=== PATIENT | female | born 1945 | race Caucasian/White ===

== ENCOUNTER 2019-10-22 12:19 | Observation (INO) | payer MEDICARE, SELFPAY ==
--- NOTE | ~2019-10-22 | CT_ITS ---
EXAMINATION: CT brain wo con EXAM DATE: 10/23/2019 09:56 INDICATION: Left leg weakness, speech impairment. TECHNIQUE: Spiral CT of the head was performed without contrast. Axial, coronal and sagittal images were reviewed. The dose-length product (DLP) for this examination was 605.33 mGy-cm. The exposure w as tailored according to patient size, and iterative reconstruction (ASIR) was used as additional dos e reduction technique. Comparison is made to prior examination from 06/09/2016. FINDINGS: There is no acute intraparenchymal hemorrhage. No evidence of intraparenchymal brain mass lesion. No evidence of acute infarction. Please note that initial head CT has limited sensitivity f or small or acute infarctions. There is mild periventricular and subcortical hypodensity, nonspecific but probably related to small vessel ischemic disease. There is mild prominence of the sulci and v entricles related to cerebral atrophy. There is intracranial carotid arteriosclerosis. There are n o extra-axial collections. There is no mass effect or midline shift. Patient has had bilateral ocul ar lens surgery. Soft tissue is unremarkable. The visualized sinuses and mastoid air cells are well aerated. IMPRESSION: 1. No acute intracranial findings. 2. Chronic age related findings. Reviewed, dictated and finalized at location A. [employer]
[2019-10-22 12:27] VITALS: BP 88/67; PULSE 87; PULSE 89; RESP 18; O2SAT 97
[2019-10-22 12:51] LABS: Glucose Point of Care 489 (65-105)
--- NOTE | 2019-10-22 13:22 | ED.GENADULT ---
HPI - General Adult General Chief complaint: Unspecified Stated complaint: DIABETIC EPISODE Time Seen by Provider: 10/22/19 13:21 Source: patient Mode of arrival: EMS Limitations: no limitations History of Present Illness HPI narrative: Pt is a 74 y/o female who presents to the ED, via EMS, from her orthopedics office, Dr. Tom with c/o glucose imbalance. Pt went to see her orthopedic for an evaluation of her arthritic knees. She states that she started feeling nauseous, sweating, and fatigued when going to XR and she felt like her BS was low so she took her glucose tablets and her BS went high. Her BS went back down and she feels better in the ED bed. Pt denies dysuria, frequency, rash, wounds, dizziness, CP, SOB, sweats, chills, or nausea in the ED bed. She states that she took her insulin this morning but did not eat because she ran out of time. MD complaint: Glucose imbalance Severity: similar to prior episodes Associated symptoms: denies other symptoms Treatments prior to arrival: other (glucose tablets) Related Data Allergies Allergy/AdvReac Type Severity Reaction Status Date / Time diclofenac Allergy Mild Unknown Verified 10/12/19 13:33 morphine Allergy Mild REDDNESS/IT Verified 10/12/19 13:33 DEUCE prednisone Allergy Mild hands Verified 10/12/19 13:33 didn't work Sulfa (Sulfonamide Allergy Mild 01/15/07 Verified 10/12/19 13:33 Antibiotics) ALLERGY CONFIMED ON ADMISSION TO PREOP sulfanilamide Allergy Mild lips Verified 10/12/19 13:33 swelling tetracycline Allergy Mild 01/15/07 Verified 10/12/19 13:33 ALLERGRY CONFIRMED ON ADMISSION TO PREOP tramadol Allergy Mild ITCHING Verified 10/12/19 13:33 Review of Systems Review of Systems: All systems reviewed & are unremarkable except as noted in HPI and below Constitutional: Constitutional: Denies chills and Denies other (sweats) Cardiovascular: Cardiovascular: Denies chest pain Respiratory: Respiratory: Denies dyspnea Gastrointestinal: Gastrointestinal: Denies nausea Genitourinary: Genitourinary: Denies nocturia and Denies dysuria Integumentary/Breasts: Skin/Breast: Denies rash and Denies wounds Neurologic: Denies dizziness PMFSH Past Medical History Medical History Depressive disorder H/O gastric ulcer 2013 Hyperlipidemia Hypertension Hypothyroid Long-term insulin use Peripheral neuropathy Spinal stenosis Surgery - 2009 Thrombocytopenia Type 2 diabetes mellitus with diabetic neuropathy Surgical History Surgical History H/O: hysterectomy 1998 History of knee replacement 2002 Social History Social History Smoking status: Never smoker Alcohol intake: current Gender identity (if verbalized by the patient): Female Exam Narrative: Exam Narrative: GENERAL: Elderly and fatigued appearing, well-nourished, and in no acute distress. HEAD: Normocephalic, atraumatic. ENT: Mucous membranes moist. CHEST: Clear to auscultation. No respiratory distress. HEART: Regular rate and rhythm. Normal peripheral pulses. ABDOMEN: Soft, nontender, nondistended. EXTREMITIES: Normal range of motion. 1+ edema. NEURO: Alert and oriented x3. PSYCH: Normal mood and affect. Course Consultations Consultation #1: Discussed case with DAVID Mejía for the hospitalist. Accepted admission. Date: 10/22/19 Time: 16:57 Vital Signs Vital signs: Vital Signs Pulse Rate 89 10/22/19 12:27 Respiratory Rate 18 10/22/19 12:27 Blood Pressure 88/67 L 10/22/19 12:27 Pulse Oximetry 97 10/22/19 12:27 Pulse Rate 84 10/22/19 14:31 Respiratory Rate 18 10/22/19 12:27 Blood Pressure 118/73 10/22/19 14:31 Pulse Oximetry 97 10/22/19 14:31 Medical Decision Making Vital Signs Vital Signs: Vital Signs Pulse Rate 89 10/22
[2019-10-22 14:00] VITALS: BP 118/73; PULSE 84; RESP 8; O2SAT 97
[2019-10-22 14:01] LABS: Basophils Percent Auto 0.4 % (0.2-1.2); Eosinophils Absolute Auto 0.1 K/mm3 (0-0.3); Hematocrit 33.7 % (37.0-47.0); Hemoglobin 10.5 g/dL (12.0-15.0); Immature Granulocyte Absolute 0.03 K/mm3 (0.00-0.031); Immature Granulocyte Percent A 0.6 % (0-0.5); Lymphocytes Absolute Auto 1.11 K/mm3 (0.9-3.2); Lymphocytes Percent Auto 20.7 % (18.3-44.2); Mean Corpuscular HGB Conc 31.2 g/dl (32-36); Mean Corpuscular Hemoglobin 26.9 pg (26-34); Mean Corpuscular Volume 86.4 fl (80-100); Mean Platelet Volume 10.1 fl (7.4-10.4); Monocytes Absolute Auto 0.6 K/mm3 (0.1-0.6); Neutrophils Absolute Auto 3.5 K/mm3 (1.3-6.7); Neutrophils Percent Auto 65.3 % (45.5-73.1); Platelet Count Result 96 k/mm3 (150-375); Red Cell Distribution Width 15.2 % (11.5-14.5); White Blood Count 5.4 K/mm3 (4.5-10.0)
[2019-10-22 14:12] LABS: Alanine Aminotransferase 22 U/L (4-35); Albumin Level 3.6 g/dL (3.5-5.1); Alkaline Phosphatase 97 U/L (38-126); Aspartate Amino Transferase 32 U/L (14-36); Bilirubin,Total 0.5 mg/dL (0.2-1.3); Blood Urea Nitrogen 22 mg/dL (7-17); Calcium 9.8 mg/dL (8.4-10.2); Carbon Dioxide 25 mmol/L (22-30); Chloride 97 mmol/L (98-107); Estimated CRCL calculation 25 ml/min; Estimated Glomerular Filt Rate 27; Glucose 306 mg/dL (65-105); Lipase 69 U/L (23-300); Potassium 4.4 mmol/L (3.4-5.0); Sodium 134 mmol/L (137-145)
[2019-10-22 14:31] VITALS: BP 118/73; PULSE 84; O2SAT 97
[2019-10-22] MEDS: SODIUM CHLORIDE 0.9% IV 1,000 ML 999 ML IV CONT (14:34)
--- NOTE | 2019-10-22 14:48 | PC.NURSE ---
Pt is unable to give urine sample at this time.
[2019-10-22 16:14] LABS: Add Urine Microscopic? YES; Appearance Urine Cloudy (Clear); Bacteria Urine 3+ /hpf; Bilirubin Urine Negative (Negative); Budding Yeast Urine Present /hpf; Color Urine Yellow (Yellow); Glucose Urine UA 3+ mg/dL (Negative); Hyaline Casts Urine 50+ /lpf; Ketones Urine Trace mg/dL (Negative); Leukocyte Esterase Ur 3+ LEU/UL (Negative); Nitrate Urine Negative (Negative); Protein Urine 2+ mg/dL (Negative); RBC Urine >75 /hpf (0-2); Specific Grav Ur 1.024 (1.001-1.035); Squamous Epithelial Cell Urine Few /hpf (Few); WBC Urine >75 /hpf
[2019-10-22 16:22] LABS: Blood Urine Negative (Negative)
[2019-10-22 19:10] VITALS: BP 110/75; PULSE 75; RESP 15; O2SAT 98
[2019-10-22 20:28] VITALS: BP 157/70; PULSE 81; RESP 16; TEMP 36.4; O2SAT 100
[2019-10-22 20:39] VITALS: BMI 31.8
[2019-10-22 21:36] LABS: Glucose Point of Care 326 (65-105)
--- NOTE | 2019-10-22 23:10 | ADMGEN ---
This patient, Adore Segovia, was admitted to Medical Room 345-01. Patient/family oriented to hospital policies and general routines including ID bracelet, bed and alarms, visiting hours, pain management, procedures, bathroom and other care routines, personal items, smoking policy, room service/diet, and visiting hours. Valuables list has been completed. Information on how to activate the Rapid Response Team has been discussed. Patient/Family are encouraged to report perceived risks to care and to ask questions if they do not understand what they are told or what they should do.
[2019-10-23] MEDS: SODIUM CHLORIDE 0.9% IV 1,000 ML 125 ML IV CONT ×2 (00:36→09:14)
[2019-10-23] MEDS: LEVOTHYROXINE SODIUM 50 MCG TABLET PO (05:58)
[2019-10-23 06:00] VITALS: BP 136/67; PULSE 81; RESP 18; TEMP 36.5; O2SAT 93
[2019-10-23 06:39] LABS: Blood Urea Nitrogen 26 mg/dL (7-17); Calcium 8.6 mg/dL (8.4-10.2); Carbon Dioxide 24 mmol/L (22-30); Chloride 99 mmol/L (98-107); Estimated CRCL calculation 33 ml/min; Estimated Glomerular Filt Rate 37; Glucose 368 mg/dL (65-105); Potassium 4.6 mmol/L (3.4-5.0); Sodium 131 mmol/L (137-145)
[2019-10-23] MEDS: lisinopriL 20 MG TABLET 40 MG PO (08:46)
[2019-10-23] MEDS: FLUOXETINE HCL 20 MG CAP PO (08:46)
[2019-10-23] MEDS: metFORMIN HCL 500 MG TABLET 1000 MG PO ×2 (08:46→17:43)
[2019-10-23] MEDS: PANTOPRAZOLE 40 MG TABLET PO (08:46)
[2019-10-23] MEDS: INSULIN ASPART (*BKC) 100 UNITS/ML SUB-Q ×4 (08:46→22:48)
[2019-10-23 08:54] LABS: Glucose Point of Care 371 (65-105)
--- NOTE | 2019-10-23 09:12 | PM.IMHP ---
H&P: HPI History of Present Illness Chief complaint: UTI/Acute renal failure Narrative: Adore Segovia is a 74 year old female who presented emergency room for nausea and dry heaving and possible low blood sugar while she was at her orthopedics office. Patient states that she took her insulin the morning of her doctor's appointment ate a cookie but did not get to eat very much else. She went to the orthopedics office and she was trying to read on her android but the words were not right and it was like she was wearing someone else's glasses . She started to feel sweaty and overall very uncomfortable. She says she fell asleep for a while and when they woke her up she started having significant nausea and dry heaving although she was not able to throw up anything. She said she was unable to find the right words and said these were all the symptoms of low blood sugar so she took some for glucose tablets she had in her purse. She says she thinks this made her better but was so nervous that she did not feel better immediately. She says she checks her blood sugars 3 to 4 times a day and is around 130 but has been much worse lately. She has an appointment on December 19 to see her doctor. She says she takes insulin and it depends on what her glucose is at the time and how many carbs that she is going to eat but she typically takes about 8 units per meal. She denies dysuria but has been having frequency the last few weeks. She has left leg weakness which is why she was at orthopedics office which has been going on for a few weeks. She has some pain associated with it but mostly weakness. She denies lightheadedness, dizziness, diarrhea, chest pain, fevers, chills, shortness of breath, hematuria, or leg swelling. She has no known history of kidney problems. She has no numbness or tingling anywhere to her body. She has no history of stroke. She said a few days ago she fell backwards onto her pomology teacher and bruised her left hand but did not hit her head. She says that her dog on which has caused her to be more down in the dumps but she thinks she was eating and drinking okay. She says that her platelets have been low in the past and she has seen automotive generator repairer before. [facility] Past Medical History Medical History Depressive disorder H/O gastric ulcer 2012 Hyperlipidemia Hypertension Hypothyroid Long-term insulin use Peripheral neuropathy Spinal stenosis Surgery - 2008 Thrombocytopenia Type 2 diabetes mellitus with diabetic neuropathy Surgical History Surgical History H/O: hysterectomy 1998 History of knee replacement 2002 Family History Family History (Updated 10/22/19 @ 23:13 by Chichi Arceo RN) Mother Family history of respiratory disorder, Onset Age: 85 Patient's mother is Father Family history of heart disease in male family member before age 55 Family history of cardiovascular disease Patient's father is Family history of chronic obstructive pulmonary disease Sibling Patient's brother is Other Depression Diabetes mellitus Family history of alcoholism Family history of arthritis Family history of glaucoma Family history of mental disorder Family history of obesity Hypertension Social History Social History (Updated 10/23/19 @ 09:22 by Shayy Henry PA-C) Social History: Patient does not drink and never smoked. She does not do drugs or marijuana. She is retired and used to work at [employer]. She stays home with her who has dementia now. Smoking status: Never smoker Alcohol intake: never Substance use: never Gender identity (if verbalized by the patient): Female Spiritual care concerns: No Agree to blood products: No Meds Home Medications and Allergies Home Medications
--- NOTE | 2019-10-23 11:51 | PCPTNOTE ---
Addendum entered by Lexus Hobbs, PT 10/23/19 11:52: Clarification: care care plan is required as patient is at baseline function. She will not be followed by PT unless there is change in status. Original Note: No Care Plan initiated due to patient being discharged today.
[2019-10-23 13:19] LABS: Glucose Point of Care 306 (65-105)
[2019-10-23 14:00] VITALS: BP 134/73; PULSE 79; RESP 20; TEMP 36.8; O2SAT 100
[2019-10-23 18:38] LABS: Glucose Point of Care 351 (65-105)
[2019-10-23 21:43] VITALS: BP 161/67; PULSE 84; RESP 18; TEMP 36.8; O2SAT 96
[2019-10-23] MEDS: LATANOPROST 0.005% OP SOLN 2.5 ML BTL 1 DROP EACH EYE (21:47)
[2019-10-23] MEDS: ACETAMINOPHEN 325 MG TABLET 650 MG PO (21:51)
[2019-10-23 22:12] LABS: Glucose Point of Care 308 (65-105)
[2019-10-24 02:01] LABS: Glucose Point of Care 228 (65-105)
[2019-10-24 06:00] VITALS: BP 146/58; PULSE 79; RESP 18; TEMP 36.4; O2SAT 94
[2019-10-24 06:08] LABS: Hemoglobin 8.7 g/dL (12.0-15.0); Mean Corpuscular HGB Conc 31.1 g/dl (32-36); Mean Corpuscular Hemoglobin 26.4 pg (26-34); Mean Corpuscular Volume 84.8 fl (80-100); Mean Platelet Volume 10.5 fl (7.4-10.4); Platelet Count Result 67 k/mm3 (150-375); Red Cell Distribution Width 14.9 % (11.5-14.5); White Blood Count 3.1 K/mm3 (4.5-10.0)
[2019-10-24] MEDS: LEVOTHYROXINE SODIUM 50 MCG TABLET PO (06:12)
[2019-10-24 06:34] LABS: Blood Urea Nitrogen 22 mg/dL (7-17); Calcium 9.1 mg/dL (8.4-10.2); Carbon Dioxide 23 mmol/L (22-30); Chloride 101 mmol/L (98-107); Estimated CRCL calculation 41 ml/min; Estimated Glomerular Filt Rate 48; Glucose 264 mg/dL (65-105); Potassium 4.5 mmol/L (3.4-5.0); Sodium 134 mmol/L (137-145)
[2019-10-24] MEDS: ONDANSETRON INJ 4 MG/2 ML VIAL IV PUSH (07:44)
[2019-10-24 08:17] LABS: Glucose Point of Care 350 (65-105)
[2019-10-24] MEDS: INSULIN ASPART (*BKC) 100 UNITS/ML SUB-Q ×2 (08:17→13:43)
[2019-10-24] MEDS: metFORMIN HCL 500 MG TABLET 1000 MG PO (08:24)
[2019-10-24] MEDS: PANTOPRAZOLE 40 MG TABLET PO (08:24)
[2019-10-24] MEDS: FLUOXETINE HCL 20 MG CAP PO (08:24)
[2019-10-24 08:25] VITALS: PULSE 79; RESP 18; O2SAT 94
[2019-10-24] MEDS: lisinopriL 20 MG TABLET 40 MG PO (08:25)
[2019-10-24] MEDS: FLUCONAZOLE 100 MG TABLET PO (09:30)
--- NOTE | 2019-10-24 12:31 | PM.DS ---
DS: Diagnosis Admitting Diagnosis Admitting Diagnosis: Urinary tract infection, site not specified Discharge Diagnosis (1) Acute UTI: Code(s): N39.0 - Urinary tract infection, site not specified Status: Acute Assessment and Plan: ----- pt is having symptoms of a UTI and had > 100,000 of yeast grow. Since she has uncontrolled diabetes, thought to be a true infection. Will treat with 14d of diflucan. pt vitals and labs are stable. (2) MANOHAR (acute kidney injury): Code(s): N17.9 - Acute kidney failure, unspecified Status: Acute Assessment and Plan: ----- improved. Likely due to decreased intake and UTI. Improved with IV fluids. (3) Thrombocytopenia: Code(s): D69.6 - Thrombocytopenia, unspecified Status: Chronic Assessment and Plan: ----- Chronic. Patient has seen budder in the past for this. (4) Type 2 diabetes mellitus with diabetic neuropathy: Code(s): E11.40 - Type 2 diabetes mellitus with diabetic neuropathy, unspecified Status: Chronic Assessment and Plan: ----- The patient has signs and symptoms hypoglycemia but this was actually not checked. She says she has been running very high lately. She got insulin without eating so it is likely that she was hypoglycemic but her glucose has been significantly elevated which makes me wonder if some of the symptoms were from her UTI or other etiology. Ct brain normal. a1c 11.0. (5) Hypothyroid: Code(s): E03.9 - Hypothyroidism, unspecified Status: Chronic Assessment and Plan: ----- TSH normal. Continue levothyroxine (6) Glaucoma: Code(s): H40.9 - Unspecified glaucoma Status: Acute Assessment and Plan: ----- continue eyedrops. No current problems at this time (7) Chronic anemia: Code(s): D64.9 - Anemia, unspecified Status: Acute Assessment and Plan: ----- appears chronic and stable. Patient states she takes iron. (8) Long-term insulin use: Code(s): Z79.4 - snf (current) use of insulin Status: Chronic Assessment and Plan: ----- See above. (9) Pancytopenia: Code(s): D61.818 - Other pancytopenia Status: Acute DS: Summary Hospital Course Reason for hospitalization: confusion Hospital Course: Pt is a 74 y/o fasarahe who was in her orthopedist doctors office who got confused and started having nausea and dry heaving. She started having blurry vision and could not find the right words so she took her glucose tab and felt better but was still shaky. She had taken her insulin that morning but was late and did not eat. Her BG was not checked during this event but when she got to the hospital it was over 400. She has been having urinary frequency but no burning lately. Vitals in the ER were pulse 89, rr 18, bp 88/67, pulse ox 97. She was started on fluids and the pt's bp improved. Her symptoms could have been due to low glucose (not proven), hypotention, and/or UTI. She was not drinking as much since her dog the prior and she was upset about that. She was admitted to the hospitalist service for observation. She had no fever or reocurring symptoms while hospitalized. her urine cx grew >100,000 yeast and with her uncontrolled diabetes with freqency,this was thought to be a true infection and will be treated with diflucan detailed below. The pt had low WBC and platlets counts which were stable. She states she knows about this and has seen a budder and was told to take iron. I talked to her about these specific lab abnormalities may not be due to just iron and that she should see her budder again. She agreed. This did not appear to be acute and were completely stable. She had no evidence of bleeding. Overall pt was doing well with no other neurological or reoccuring symptoms. She has a demented at home she has to take care of and wanted to discharge. S
[2019-10-24 12:45] LABS: Hematocrit 31.5 % (37.0-47.0); Hemoglobin 9.7 g/dL (12.0-15.0); Mean Corpuscular HGB Conc 30.8 g/dl (32-36); Mean Corpuscular Hemoglobin 26.5 pg (26-34); Mean Corpuscular Volume 86.1 fl (80-100); Mean Platelet Volume 9.9 fl (7.4-10.4); Platelet Count Result 73 k/mm3 (150-375); Red Blood Count 3.66 M/mm3 (4.2-5.4); Red Cell Distribution Width 14.9 % (11.5-14.5); White Blood Count 4.4 K/mm3 (4.5-10.0)
[2019-10-24 13:37] LABS: Glucose Point of Care 302 (65-105)
== END 2019-10-24 14:45 | disposition home or self-care (01) ==
LOC: ANHED 13:20 → ANH3MED 17:25
PROVIDERS: Internal Medicine; Physician Assistant; Admitting Provider Internal Medicine; Emergency Provider Emergency Medicine; PCP Family Medicine; Visit Provider Internal Medicine
DX: N17.9 Acute kidney failure, unspecified (principal); B37.49 Other urogenital candidiasis; R35.0 Frequency of micturition; E11.65 Type 2 diabetes mellitus with hyperglycemia; E11.42 Type 2 diabetes mellitus with diabetic polyneuropathy; I10 Essential (primary) hypertension; E03.9 Hypothyroidism, unspecified; E78.5 Hyperlipidemia, unspecified; D61.818 Other pancytopenia; H40.9 Unspecified glaucoma; Z79.4 Long term (current) use of insulin; Z96.659 Presence of unspecified artificial knee joint
CPT/HCPCS: 36415; 70450; 80048; 80053; 81001; 83036; 83690; 84443; 85025; 85027; 87086; 96361; 96365; 96375; 96376; 97161; 97165; 99285; A9270; G0378; J0696; J1815; J2405; J7030

== ENCOUNTER 2020-06-09 11:23 | Emergency (ER) | payer MEDICARE, SELFPAY ==
[2020-06-09 11:40] VITALS: BP 171/80; PULSE 92; RESP 16; TEMP 36.2; O2SAT 99
--- NOTE | 2020-06-09 11:53 | ED.EYEPROB ---
HPI - Eye Problem General Chief complaint: Eye Problems Stated complaint: Eye problems Time Seen by Provider: 06/09/20 11:53 Source: patient Mode of arrival: ambulatory Limitations: no limitations History of Present Illness HPI Narrative: Adore Armstrong is a 75 yo female here with swelling to right eyelid for the last 2 to 3 days with some drainage of the lesion on upper eyelid, it is red has been treating it with impacts but still has not resolved, here for antibiotics to eye since I was almost shut this morning; no fever, pain to facial bones Related Data Home Medications Medication Instructions Recorded Confirmed latanoprost 1 drp OPHTHALMIC (EYE) HS 10/22/19 06/09/20 timolol maleate 1 drp OPHTHALMIC (EYE) HS 10/22/19 06/09/20 Allergies Allergy/AdvReac Type Severity Reaction Status Date / Time diclofenac Allergy Mild Unknown Verified 03/29/20 13:19 morphine Allergy Mild REDDNESS/IT Verified 03/29/20 13:19 DEUCE prednisone Allergy Mild hands Verified 03/29/20 13:19 didn't work Sulfa (Sulfonamide Allergy Mild 01/15/07 Verified 03/29/20 13:19 Antibiotics) ALLERGY CONFIMED ON ADMISSION TO PREOP sulfanilamide Allergy Mild lips Verified 03/29/20 13:19 swelling tetracycline Allergy Mild 01/15/07 Verified 03/29/20 13:19 ALLERGRY CONFIRMED ON ADMISSION TO PREOP tramadol Allergy Mild ITCHING Verified 03/29/20 13:19 Review of Systems Review of Systems: Narrative: CONSTITUTIONAL: Denies fever, chills, sweats. EYES: Denies visual changes, has redness right upper eyelid, small discharge. ENT: Denies rhinorrhea, congestion, sore throat, otalgia. CARDIOVASCULAR: Denies chest pain, palpitations, edema. RESPIRATORY: Denies dyspnea, wheezing, cough GASTROINTESTINAL: Denies abdominal pain, nausea, vomiting, diarrhea. GENITOURINARY: Denies dysuria, hematuria, abnormal discharge SKIN: Denies rash or itching. NEUROLOGIC: Denies numbness, or focal weakness. PSYCHIATRIC: Denies anxiety or depression. [facility] Past Medical History Medical History MANOHAR (acute kidney injury) Depressive disorder H/O gastric ulcer 2012 Hyperlipidemia Hypertension Hypothyroid Long-term insulin use Peripheral neuropathy Spinal stenosis Surgery - 2009 Thrombocytopenia Type 2 diabetes mellitus with diabetic neuropathy UTI (urinary tract infection) Surgical History Surgical History H/O: hysterectomy 1998 History of knee replacement 2002 Family History Family History Mother Family history of respiratory disorder, Onset Age: 85 Patient's mother is Father Family history of heart disease in male family member before age 55 Family history of cardiovascular disease Patient's father is Family history of chronic obstructive pulmonary disease Sibling Patient's brother is Other Depression Diabetes mellitus Family history of alcoholism Family history of arthritis Family history of glaucoma Family history of mental disorder Family history of obesity Hypertension Social History Social History Social History: Patient does not drink and never smoked. She does not do drugs or marijuana. She is retired and used to work at [employer]. She stays home with her who has dementia now. Smoking status: Never smoker Alcohol intake: never Substance use: never Gender identity (if verbalized by the patient): Female Spiritual care concerns: No Agree to blood products: No Comments At time of signature, I agree with nursing past medical, surgical, social and family history. There is no relevant family history pertinent to the presenting complaint. Exam Narrative: Exam Narrativ
== END 2020-06-09 12:10 | disposition home or self-care (01) ==
PROVIDERS: Emergency Provider Nurse Practitioner; PCP Family Medicine
DX: H00.011 Hordeolum externum right upper eyelid (principal); E78.5 Hyperlipidemia, unspecified; I10 Essential (primary) hypertension; E03.9 Hypothyroidism, unspecified; E11.42 Type 2 diabetes mellitus with diabetic polyneuropathy; Z79.4 Long term (current) use of insulin; M48.00 Spinal stenosis, site unspecified
CPT/HCPCS: 99213; G0463

== ENCOUNTER 2021-05-20 16:28 | Observation (INO) | payer MEDICARE, SELFPAY ==
[2021-05-20] VITALS (29 sets, daily range): BP systolic 107–148; BP diastolic 41–97; PULSE 90–112; RESP 14–22; TEMP 36.3–36.4; O2SAT 94–100
--- NOTE | ~2021-05-20 | CT_ITS ---
EXAMINATION: CT abdomen pelvis w con DATE: 05/20/2021 20:15 INDICATION: Generalized abdominal pain. Nausea and vomiting. TECHNIQUE: Computed tomography (CT) of the abdomen and pelvis was performed with 100 mL Omnipaque 350 intravenous contrast. Automated exposure control and iterative reconstruction technique were employe d. The dose-length product was 1226.60 mGy-cm. COMPARISON: CT abdomen and pelvis 03/15/2013 FINDINGS: The visualized portions of the lung bases demonstrate mild atelectasis. Calcified right hil ar lymph nodes are consistent with old granulomatous disease. No pleural effusion. The heart size is normal. There are coronary artery calcifications. No pericardial effusion. The liver demonstrates christina face nodularity, consistent with cirrhosis. There are calcifications in the liver and spleen, consist ent with old granulomatous disease. There is moderate splenomegaly measuring 15.3 cm. The gallbladder is distended and contains gallstones. The pancreas and adrenal glands are normal. There are parenchy mal calcifications in right kidney. There is a 6 mm cyst in left kidney. There is diverticulosis of t he colon without evidence of diverticulitis. The appendix is normal. Paraesophageal varices are noted . There are no pathologically enlarged lymph nodes. There is no free intraperitoneal fluid. There is a bone graft donor site in right ilium. There are changes of anterior and posterior fusion procedures from L3 to L5. There is severe thoracic spondylosis. IMPRESSION: 1. Distended gallbladder with gallstones. Correlate with physical exam for evidence of acute cholecys titis. 2. Cirrhosis of the liver with portal venous hypertension. Reviewed, dictated and finalized at location A. IMPRESSION: 1. Distended gallbladder with gallstones. Correlate with physical exam for evid ence of acute cholecystitis. 2. Cirrhosis of the liver with portal venous hypertension.
--- NOTE | ~2021-05-20 | XR_ITS ---
EXAMINATION: XR abdomen/kub 1V DATE: 05/21/2021 02:21 INDICATION: Abdominal distention. TECHNIQUE: A supine view of the abdomen on 2 radiographs was obtained. COMPARISON: CT abdomen and pelvis 03/20/2021 FINDINGS: There are no dilated loops of bowel. There is no urolithiasis. There are changes of anterio r and posterior fusion procedures in lumbosacral spine. IMPRESSION: 1. Nonobstructive bowel gas pattern. Reviewed, dictated and finalized at location A.
--- NOTE | ~2021-05-20 | XR_ITS ---
EXAMINATION: XR chest 1V portable DATE: 05/20/2021 17:47 INDICATION: Cough and congestion. TECHNIQUE: A single frontal view of the chest was obtained. COMPARISON: Chest 2 views 12/11/2016, CT abdomen and pelvis 03/15/2013 FINDINGS: There is chronic mild elevation of right hemidiaphragm. There are airspace opacities in rig ht lower lung zone. A calcified right lung nodule and calcified right hilar lymph nodes are consisten t with old granulomatous disease. No pleural effusion or pneumothorax. The heart size is normal. IMPRESSION: 1. Airspace opacities in right lower lung zone, consistent with atelectasis versus pneumonia. Reviewed, dictated and finalized at location A. IMPRESSION: 1. Airspace opacities in right lower lung zone, consistent with atelectasis telly daphne pneumonia.
--- NOTE | 2021-05-20 17:31 | ECG_ITS ---
Measurements Intervals [place] Rate: 88 P: 36 NV: 159 QRS: -43 QRSD: 117 T: 67 QT: 386 QTc: 468 Interpretive Statements SINUS RHYTHM INCOMPLETE LEFT BUNDLE BRANCH BLOCK LOW QRS VOLTAGE IN PRECORDIAL LEADS CANNOT RULE OUT SEPTAL INFARCT, AGE INDETERMINATE INFERIOR INFARCT, AGE INDETERMINATE BORDERLINE ST-T WAVE ABNORMALITY- HIGH LATERAL LEADS BASELINE ARTIFACT- II, III, AVF, V1, V3-V6 ABNORMAL ECG Electronically Signed On 05-20-2021 20:13:07 CDT by Rahul Chery D.O.
[2021-05-20] MEDS: SODIUM CHLORIDE 0.9% IV 1,000 ML 999 ML IV CONT (17:54)
[2021-05-20] MEDS: ONDANSETRON INJ 4 MG/2 ML VIAL IV PUSH ×2 (17:54→21:26)
--- NOTE | 2021-05-20 17:59 | ED.URI ---
HPI - URI/Sore Throat General Chief Complaint: Upper Respiratory Infection <Velia Van MD - Last Filed: 05/22/21 07:12> Stated Complaint: COUGH/RUNNY NOSE,N/V/D <Velia Van MD - Last Filed: 05/22/21 07:12> Time Seen by Provider: 05/20/21 17:20 <Velia Van MD - Last Filed: 05/22/21 07:12> Source: patient <Velia Van MD - Last Filed: 05/22/21 07:12> Mode of arrival: EMS <Velia Van MD - Last Filed: 05/22/21 07:12> Limitations: no limitations <Velia Van MD - Last Filed: 05/22/21 07:12> History of Present Illness HPI Narrative: This is a 76 year old female who presents from the alf for evaluation of nausea, vomiting and diarrhea. Patient reports her symptoms started ago with cough, nasal congestion. Today she developed nausea, vomiting, diarrhea and abdominal pain. She came to ER because she is also feeling weak. She denies fever . She was negative for rapid COVID and influenza at her facility. She is also vaccinated for covid. She denies chest pain or sob. <Velia Van MD - Last Filed: 05/22/21 07:12> Related Data Home Medications: Home Medications Medication Instructions Recorded Confirmed latanoprost 1 drp OPHTHALMIC (EYE) HS 10/22/19 08/22/20 alprazolam 0.5 mg tablet 0.25 mg PO PRN PRN 03/14/21 amlodipine 5 mg tablet 5 mg PO DAILY 03/14/21 aspirin 325 mg tablet 325 mg PO DAILY 03/14/21 atorvastatin 80 mg tablet 80 mg PO DAILY 03/14/21 clopidogrel 75 mg tablet 75 mg PO DAILY 03/14/21 duloxetine 60 mg capsule,delayed 60 mg PO DAILY 03/14/21 release gabapentin 300 mg capsule 300 mg PO TID 03/14/21 guaifenesin 600 mg tablet, 600 mg PO BID 03/14/21 extended release 12 hr hydroxyzine HCl 10 mg tablet 10 mg PO QHS tablet 03/14/21 loperamide 2 mg capsule 2 mg PO Q6H PRN 03/14/21 loratadine 10 mg capsule 10 mg PO DAILY 03/14/21 multivitamin 1 tablet PO DAILY 03/14/21 acetaminophen 650 mg PO Q4-6H PRN 05/20/21 cyclosporine [Restasis] 2 drp OPHTHALMIC (EYE) BID PRN 05/20/21 05/20/21 empagliflozin [Jardiance] 25 mg PO DAILY 05/20/21 ferrous sulfate 325 mg PO DAILY 05/20/21 05/20/21 hydrocortisone 1 applic TOPICAL BID PRN 05/20/21 05/20/21 insulin glargine [Lantus Solostar 42 unit SUBCUT QAM 05/20/21 U-100 Insulin] insulin lispro [Humalog KwikPen 12 unit SUB-Q TID 05/20/21 Insulin] insulin lispro [Humalog Pen] 10 unit SUBCUT ONCE 05/20/21 levocetirizine [Xyzal] 5 mg PO DAILY 05/20/21 05/20/21 lisinopril 40 mg PO DAILY 05/20/21 metformin 1,000 mg PO BID 05/20/21 05/20/21 <Veila Van MD - Last Filed: 05/22/21 07:12> Allergies/Adverse Reactions: Allergies Allergy/AdvReac Type Severity Reaction Status Date / Time diclofenac Allergy Mild Unknown Verified 05/20/21 23:50 morphine Allergy Mild REDDNESS/IT Verified 05/20/21 23:50 DEUCE prednisone Allergy Mild hands Verified 05/20/21 23:50 didn't work Sulfa (Sulfonamide Allergy Mild 01/15/07 Verified 05/20/21 23:50 Antibiotics) ALLERGY CONFIMED ON ADMISSION TO PREOP sulfanilamide Allergy Mild lips Verified 05/20/21 23:50 swelling tetracycline Allergy Mild 01/15/07 Verified 05/20/21 23:50 ALLERGRY CONFIRMED ON ADMISSION TO PREOP tramadol Allergy Mild ITCHING Verified 05/20/21 23:50 <Velia Van MD - Last Filed: 05/22/21 07:12> Review of Systems Review of Systems: All systems reviewed & are unremarkable except as noted in HPI and below <Velia Van MD - Last Filed: 05/22/21 07:12> Constitutional: Constitutional: Reports weakness <Velia Van MD - Last Filed: 05/22/21 07:12> ENT: Reports nasal congestion and Reports sore throat <Velia Van MD - Last Filed: 05/22/21 07:12> Cardiovascular: Cardiovascular: Denies chest pain <Velia Van MD - Last Filed: 05/22/21 07:12> Respiratory: Respiratory: Reports cough and Denie
[2021-05-20 18:08] LABS: Glucose Point of Care 255 mg/dl (65-105)
--- NOTE | 2021-05-20 18:47 | PC.NURSE ---
pts daughter gisele contacted at [phone] and given update.
[2021-05-20 18:51] LABS: Add Urine Microscopic? YES; Appearance Urine Cloudy (Clear); Bacteria Urine 4+ /hpf; Bilirubin Urine Negative (Negative); Blood Urine 1+ (Negative); Color Urine Yellow (Yellow); Glucose Urine UA 3+ mg/dL (Negative); Ketones Urine Negative (Negative); Leukocyte Esterase Ur 3+ LEU/UL (Negative); Nitrate Urine Negative (Negative); Protein Urine 1+ mg/dL (Negative); Specific Grav Ur 1.026 (1.001-1.035); Squamous Epithelial Cell Urine Occasional /hpf (Few); Urobilinogen Urine Negative mg/dL (<2.0); WBC Clumps Urine Present /HPF; WBC Urine >75 /hpf
[2021-05-20 19:26] LABS: Alanine Aminotransferase 20 U/L (4-35); Albumin Level 3.5 g/dL (3.5-5.1); Alkaline Phosphatase 74 U/L (38-126); Anion Gap 10 mmol/L (8-16); Aspartate Amino Transferase 29 U/L (14-36); Bilirubin,Total 0.4 mg/dL (0.2-1.3); Blood Urea Nitrogen 32 mg/dL (7-17); Calcium 8.7 mg/dL (8.4-10.2); Carbon Dioxide 16 mmol/L (22-30); Chloride 107 mmol/L (98-107); Estimated CRCL calculation 47 ml/min; Estimated Glomerular Filt Rate > 60; Glucose 231 mg/dL (65-110); Lipase 70 U/L (23-300); Sodium 133 mmol/L (137-145)
[2021-05-20 20:14] LABS: Eosinophils Percent Auto 0.5 % (0-4.4); Hematocrit 26.7 % (37.0-47.0); Hemoglobin 7.7 g/dL (12.0-15.0); Immature Granulocyte Absolute 0.02 K/mm3 (0.00-0.031); Immature Granulocyte Percent A 0.3 % (0-0.5); Lymphocytes Absolute Auto 1.01 K/mm3 (0.9-3.2); Lymphocytes Percent Auto 15.3 % (18.3-44.2); Mean Corpuscular HGB Conc 28.8 g/dl (32-36); Mean Corpuscular Hemoglobin 21.7 pg (26-34); Mean Corpuscular Volume 75.2 fl (80-100); Mean Platelet Volume 10.1 fl (7.4-10.4); Monocytes Absolute Auto 0.3 K/mm3 (0.1-0.6); Neutrophils Absolute Auto 5.2 K/mm3 (1.3-6.7); Neutrophils Percent Auto 78.9 % (45.5-73.1); Platelet Count Result 92 k/mm3 (150-375); Red Blood Count 3.55 M/mm3 (4.2-5.4); Red Cell Distribution Width 17.3 % (11.5-14.5); White Blood Count 6.6 K/mm3 (4.5-10.0)
[2021-05-20 20:45] LABS: Hypochromasia 2+ (NORMAL); Poikilocytosis 1+ (NORMAL)
[2021-05-20 20:46] LABS: Ovalocytes 1+ (NORMAL)
[2021-05-20] MEDS: fentaNYL CITRATE INJ (*CRX) 100 MCG/2 ML VIAL 50 MCG IV PUSH (22:11)
--- NOTE | 2021-05-20 22:25 | PM.IMHP ---
H&P: HPI History of Present Illness Date/Time: 05/20/21 22:25 Chief Complaint: Nausea /vomiting/ diarrhea Narrative: This is a 76-year-old female with past medical history significant for type 2 diabetes mellitus, glaucoma, hypertension, chronic kidney disease, peptic ulcer, stroke, hypothyroidism, spinal stenosis, peripheral neuropathy, left-sided hemiparesis. Patient was brought in today from residential due to nausea vomiting diarrhea abdominal distension. At the time of my visit patient was unable to give much history due to her discomfort. Preliminary workup was significant for CT of abdomen and pelvis showed a distended gallstone with lithiasis, urinalysis was significant for numerous wbc's present. Review of Systems Review of Systems: Nausea vomiting diarrhea abdominal distension abdominal pain ROS unobtainable: Yes unobtainable due to mental status (At the time of my visit patient was obtunded) [facility] Past Medical History Medical History (Updated 05/20/21 @ 22:44 by Yury Perdue MD) MANOHAR (acute kidney injury) Anemia Depressive disorder H/O gastric ulcer 2012 Hemiparesis affecting left side as late effect of cerebrovascular accident (CVA) (~08/26/20) History of hordeolum Hyperlipidemia Hypertension Hypothyroid Long-term insulin use Peripheral neuropathy Spinal stenosis Surgery - 2008 Thrombocytopenia Type 2 diabetes mellitus with diabetic neuropathy UTI (urinary tract infection) Vitamin D deficiency Surgical History Surgical History H/O: hysterectomy 1998 History of knee replacement 2002 Family History Family History Mother Family history of respiratory disorder, Onset Age: 85 Patient's mother is Father Family history of heart disease in male family member before age 55 Family history of cardiovascular disease Patient's father is Family history of chronic obstructive pulmonary disease Sibling Patient's brother is Other Depression Diabetes mellitus Family history of alcoholism Family history of arthritis Family history of glaucoma Family history of mental disorder Family history of obesity Hypertension Social History Social History Social History: Patient does not drink and never smoked. She does not do drugs or marijuana. She is retired and used to work at [employer]. She stays home with her who has dementia now. Smoking status: Never smoker Alcohol intake: never Substance use: never Gender identity (if verbalized by the patient): Female Sexual Orientation (if Verbalized by the Patient): Straight or Heterosexual Spiritual care concerns: No Agree to blood products: No Meds Home Medications and Allergies Home Medications Medication Instructions Recorded Confirmed Type latanoprost 1 drp OPHTHALMIC (EYE) HS 10/22/19 05/20/21 History levothyroxine 50 mcg tablet See Rx Instructions .ROUTE 09/07/20 05/20/21 Rx .COMPLEX #90 tablet pantoprazole 40 mg tablet,delayed See Rx Instructions .ROUTE 09/07/20 05/20/21 Rx release .COMPLEX #90 tablet alprazolam 0.5 mg tablet 0.25 mg PO TID PRN 03/14/21 05/20/21 History amlodipine 5 mg tablet 5 mg PO DAILY 03/14/21 05/20/21 History aspirin 325 mg tablet 325 mg PO DAILY 03/14/21 05/20/21 History atorvastatin 80 mg tablet 80 mg PO DAILY 03/14/21 05/20/21 History clopidogrel 75 mg tablet 75 mg PO DAILY 03/14/21 05/20/21 History duloxetine 60 mg capsule,delayed 60 mg PO DAILY 03/14/21 05/20/21 History release gabapentin 300 mg capsule 300 mg PO TID 03/14/21 05/20/21 History guaifenesin 600 mg tablet, 600 mg PO BID 03/14/21 05/20/21 History extended release 12 hr hydroxyzine HCl 10 mg tablet 10 mg PO QHS tablet 03/14/21 05/20/21 History loperamide 2 mg capsule 2 mg PO Q6H PRN 03/14/21
[2021-05-20] MEDS: LACTATED RINGERS 1,000 ML 125 ML IV CONT (23:33)
--- NOTE | 2021-05-20 23:41 | ADMGEN ---
This patient, Adore Segovia, was admitted to Medical Room 259-01. Patient/family oriented to hospital policies and general routines including ID bracelet, bed and alarms, visiting hours, pain management, procedures, bathroom and other care routines, personal items, smoking policy, room service/diet, and visiting hours. Information on how to activate the Rapid Response Team has been discussed. Patient/Family are encouraged to report perceived risks to care and to ask questions if they do not understand what they are told or what they should do.
--- NOTE | 2021-05-20 23:44 | PC.NURSE ---
Pt needed cleaned up before getting up to the floor. Took 2 ppl almost 45 mins to clean her up. I have cleaned her up myself 3 times since she has been here in the ED.
[2021-05-21] MEDS: ONDANSETRON INJ 4 MG/2 ML VIAL IV PUSH (04:29)
[2021-05-21 07:47] VITALS: BP 148/69; PULSE 99; RESP 20; TEMP 36.4; O2SAT 93
[2021-05-21] MEDS: CLOPIDOGREL BISULFATE 75 MG TABLET PO (08:29)
[2021-05-21] MEDS: amLODIPine BESYLATE 5 MG TABLET PO (08:29)
[2021-05-21] MEDS: ASPIRIN 325 MG TABLET PO (08:29)
[2021-05-21] MEDS: ATORVASTATIN 40 MG TABLET 80 MG PO (08:29)
[2021-05-21] MEDS: FERROUS SULFATE 324 MG TABLET PO (08:29)
[2021-05-21] MEDS: DULoxetine HCL 60 MG CAPSULE.DR PO (08:29)
[2021-05-21] MEDS: GABAPENTIN 300 MG CAPSULE PO ×3 (08:29→16:50)
[2021-05-21 08:59] LABS: Glucose Point of Care 195 mg/dl (65-105)
[2021-05-21 09:50] VITALS: BP 132/53; PULSE 97; RESP 20; TEMP 36.9; O2SAT 95
[2021-05-21] MEDS: LACTATED RINGERS 1,000 ML 65 ML IV CONT (11:12)
[2021-05-21 13:17] LABS: Glucose Point of Care 246 mg/dl (65-105)
[2021-05-21 16:38] LABS: Glucose Point of Care 193 mg/dl (65-105)
[2021-05-21] MEDS: INSULIN ASPART (*BKC) 100 UNITS/ML SUB-Q (16:50)
--- NOTE | 2021-05-21 17:00 | PM.CNGS ---
Assessment and Plan Assessment and plan (1) Nausea vomiting and diarrhea: Code(s): R11.2 - Nausea with vomiting, unspecified; R19.7 - Diarrhea, unspecified Status: Acute Assessment and Plan: these are the patient's main symptoms. Her abdominal pain is likely secondary to did disease entities causing these symptoms. At present, most likely candidates are urinary tract infection and colitis possibly C difficile colitis. Do not feel that her symptoms are patient support representative of cholecystitis. (2) Acute urinary retention: Code(s): R33.8 - Other retention of urine Status: Acute Assessment and Plan: [place] catheter placed. Could well be the cause of her very abnormal UA and likely urinary tract infection. (3) Cholelithiasis: Qualifiers: Cholelithiasis location: gallbladder Cholecystitis presence: without cholecystitis Biliary obstruction: without biliary obstruction Qualified Code(s): K80.20 - Calculus of gallbladder without cholecystitis without obstruction Code(s): K80.20 - Calculus of gallbladder without cholecystitis without obstruction Status: Chronic Assessment and Plan: Gallstones noted for at least the last 8 years. Ultrasound 2012 showed gallstones. Currently she has numerous calcified gallstones on CT but no evidence of cholecystitis on imaging. She has no tenderness in the right upper quadrant. No severe pain in the upper abdomen. Doubt very much that gallstones are the cause of her present illness. (4) Cirrhosis of liver: Qualifiers: Hepatic cirrhosis type: unspecified hepatic cirrhosis Ascites presence: without ascites Qualified Code(s): K74.60 - Unspecified cirrhosis of liver Code(s): K74.60 - Unspecified cirrhosis of liver Status: Chronic Assessment and Plan: Etiology unclear. She has never heard that she has cirrhosis but CT is very suggestive in fact CT shows not only cirrhosis but splenomegaly and portal hypertension with esophageal varices. Recommend GI consultation and image guided liver biopsy. (5) Portal hypertension with esophageal varices: Code(s): K76.6 - Portal hypertension; I85.00 - Esophageal varices without bleeding Status: Chronic Assessment and Plan: Noted on CT scan. Please see above. Splenomegaly due to Portal hypertension could be playing a role in her anemia and chronic low platelet count (6) Anemia: Qualifiers: Anemia type: iron deficiency Iron deficiency anemia type: unspecified iron deficiency Qualified Code(s): D50.9 - Iron deficiency anemia, unspecified Code(s): D64.9 - Anemia, unspecified Status: Acute Assessment and Plan: very low MCV. Likely has iron deficiency or possibly from chronic loss. (7) Type 2 diabetes mellitus with hyperglycemia, with long-term current use of insulin: Code(s): E11.65 - Type 2 diabetes mellitus with hyperglycemia; Z79.4 - [employer] (current) use of insulin Status: Chronic (8) Hemiparesis affecting right side as late effect of cerebrovascular accident: Code(s): I69.351 - Hemiplegia and hemiparesis following cerebral infarction affecting right dominant side Status: Chronic Assessment and Plan: Stroke occurred last July which is essentially 9 months ago. History of Present Illness Consult details Consult date: 05/21/21 Reason for consult: gallstones Requesting physician: Yury Perdue MD Narrative: The patient is a 76-year-old woman who last July had a left hemispheric stroke leaving her with right hemiparesis. She resides in a intermediate in [facility] but has been to [facility] on requested to come here with her present illness. She reportedly had some cough and nasal congestion but then starting yesterday, FridayMay 20, she began having nausea vomiting and diarrhea. She was feeling quite weak. She had a COVID rapid test and which was negative as well
[2021-05-21 17:50] VITALS: BP 136/54; PULSE 108; RESP 20; TEMP 36.7; O2SAT 96
[2021-05-21] MEDS: ACETAMINOPHEN 325 MG TABLET 650 MG PO (18:37)
--- NOTE | 2021-05-21 19:08 | PM.IMPN ---
Progress Note: A&P Assessment and Plan (1) Acute UTI: Code(s): N39.0 - Urinary tract infection, site not specified Status: Acute Assessment and Plan: 3+ Leuk esterase on admission UA Urine culture pending may want to de-escelate abx from imipenem, as only prior urine microorganism was yeast (2) Acidosis, metabolic: Code(s): E87.2 - Acidosis Status: Acute Assessment and Plan: [place] acidosis Very likely related to patient's diarrhea monitor acidosis on am chemistry, but will most likely resolve when diarrhea fixed (3) Nausea vomiting and diarrhea: Code(s): R11.2 - Nausea with vomiting, unspecified; R19.7 - Diarrhea, unspecified Status: Acute Assessment and Plan: most likely related to UTI, and potentially infectious colitis evaluated by surgery and based on clinical picture and chronicity of cholelithiasis, they advised overwhelmingly unlikely pain is related to cholecystitis KUB without any acute findings stool path pcr pending (4) Type 2 diabetes mellitus with hyperglycemia, with long-term current use of insulin: Code(s): E11.65 - Type 2 diabetes mellitus with hyperglycemia; Z79.4 - lobsterman (current) use of insulin Status: Chronic Assessment and Plan: Patient is NPO Accu-Cheks every 6 hours Insulin sliding scale as needed (5) Hypertension: Qualifiers: Hypertension type: essential hypertension Qualified Code(s): I10 - Essential (primary) hypertension Code(s): I10 - Essential (primary) hypertension Status: Chronic Assessment and Plan: continue amlodipine (6) Microcytic anemia: Code(s): D50.9 - Iron deficiency anemia, unspecified Status: Acute Assessment and Plan: Hgb 9.8 late last year, down to 7.7 now no overt bleed, and denies melena hematochezia hemoptysis or hematemesis b12 folate and iron studies pending will discuss age appropriate screening colonoscopy with paitent monitor am labs, transfuse as needed hold pharm dvt ppx, opt for scd instead (7) Hemiparesis affecting left side as late effect of cerebrovascular accident (CVA): Onset Date: ~08/26/20 Code(s): I69.354 - Hemiplegia and hemiparesis following cerebral infarction affecting left non-dominant side Status: Acute Assessment and Plan: Unchanged (8) Peripheral neuropathy: Code(s): G62.9 - Polyneuropathy, unspecified Status: Chronic Assessment and Plan: Unchanged Additional Plan acute on chronic was Subjective Date/time seen: 05/21/21 19:08 resting comfortably in bed pain getting better, has not thrown up as far as she can remember today 2 bm as best as she can remember today Review of Systems Review of Systems: All systems reviewed & are unremarkable except as noted in HPI and below Exam Const: General: no acute distress Resp: Effort & Inspection: normal respiratory effort Auscultation: clear to auscultation bilaterally Cardio: Rate: regular rate Rhythm: regular rhythm GI: Other: flexi-seal in place some mild tenderness to palpation of abdomen bowel sounds audible Objective Data Vital Signs Vital Signs: Vital Signs - 24 hr 05/20/21 19:15 05/20/21 19:45 05/20/21 20:00 Temperature Pulse Rate 100 Respiratory Rate 19 20 20 Blood Pressure 140/86 Pulse Oximetry 05/20/21 21:27 05/20/21 23:48 05/20/21 23:51 Temperature 97.4 F L Pulse Rate 97 112 H Respiratory Rate 18 22 H Blood Pressure 144/87 H 120/60 120/60 Pulse Oximetry 100 94 05/21/21 07:47 Temperature 97.5 F L Pulse Rate 99 Respiratory Rate 20 Blood Pressure 148/69 H Pulse Oximetry 93 Intake/Output Intake/Output: Intake & Output 05/18/21 05/19/21 05/20/21 05/21/21 23:59 23:59 23:59 23:59 Intake Total 1250 1300 Output Total 700 Balance 1250 600 Meds/Results Medications: Active Medications Generic Name Dose Route Start Last Admin Trade Name Abdoul Acevedo
[2021-05-21 20:48] LABS: Glucose Point of Care 221 mg/dl (65-105)
[2021-05-21 21:28] LABS: Iron < 10 ug/dL (37-170)
[2021-05-21 21:40] LABS: Folic Acid > 20.0 ng/mL (2.76->20)
[2021-05-21 22:00] VITALS: BP 149/85; PULSE 102; RESP 16; TEMP 36.4; O2SAT 94
[2021-05-21 23:11] LABS: Percent Iron Saturation < 3 % (20-50)
[2021-05-22] MEDS: LACTATED RINGERS 1,000 ML 65 ML IV CONT ×2 (02:27→20:27)
[2021-05-22] MEDS: ACETAMINOPHEN 325 MG TABLET 650 MG PO ×2 (04:25→17:01)
[2021-05-22 06:00] VITALS: BP 140/62; PULSE 107; RESP 16; TEMP 36.5; O2SAT 94
[2021-05-22 06:09] LABS: Basophils Percent Auto 0.2 % (0.2-1.2); Eosinophils Absolute Auto 0.2 K/mm3 (0-0.3); Eosinophils Percent Auto 4.2 % (0-4.4); Hematocrit 25.7 % (37.0-47.0); Hemoglobin 7.3 g/dL (12.0-15.0); Immature Granulocyte Absolute 0.02 K/mm3 (0.00-0.031); Immature Granulocyte Percent A 0.4 % (0-0.5); Lymphocytes Absolute Auto 1.06 K/mm3 (0.9-3.2); Lymphocytes Percent Auto 22.1 % (18.3-44.2); Mean Corpuscular HGB Conc 28.4 g/dl (32-36); Mean Corpuscular Hemoglobin 21.2 pg (26-34); Mean Corpuscular Volume 74.7 fl (80-100); Mean Platelet Volume 10.3 fl (7.4-10.4); Monocytes Absolute Auto 0.7 K/mm3 (0.1-0.6); Monocytes Percent Auto 15.4 % (2.6-8.5); Neutrophils Absolute Auto 2.8 K/mm3 (1.3-6.7); Neutrophils Percent Auto 57.7 % (45.5-73.1); Nucleated Red Blood Cells Perc 0.4 % (0.0-0.2); Platelet Count Result 92 k/mm3 (150-375); Red Blood Count 3.44 M/mm3 (4.2-5.4); Red Cell Distribution Width 17.3 % (11.5-14.5); White Blood Count 4.8 K/mm3 (4.5-10.0)
[2021-05-22 06:19] LABS: Alanine Aminotransferase 17 U/L (4-35); Albumin Level 3.1 g/dL (3.5-5.1); Alkaline Phosphatase 64 U/L (38-126); Anion Gap 6 mmol/L (8-16); Aspartate Amino Transferase 25 U/L (14-36); Bilirubin,Total 0.4 mg/dL (0.2-1.3); Blood Urea Nitrogen 20 mg/dL (7-17); Calcium 9.3 mg/dL (8.4-10.2); Carbon Dioxide 23 mmol/L (22-30); Chloride 109 mmol/L (98-107); Estimated CRCL calculation 47 ml/min; Estimated Glomerular Filt Rate > 60; Glucose 206 mg/dL (65-110); Magnesium 1.6 mg/dL (1.6-2.3); Phosphorus 2.6 mg/dL (2.5-4.5); Potassium 3.9 mmol/L (3.4-5.0); Sodium 138 mmol/L (137-145)
[2021-05-22 06:53] LABS: Glucose Point of Care 211 mg/dl (65-105)
[2021-05-22 07:44] LABS: Band Neutrophils Percent 8 % (0-6); Eosinophils Absolute Manual 0.28 K/mm3 (0.02-0.5); Eosinophils Percent Manual 6 % (0-4); Lymphocytes Absolute Manual 0.81 K/mm3 (1.1-4.5); Monocytes Absolute Manual 0.38 K/mm3 (0.1-0.90); Monocytes Percent Manual 8 % (3-9); Neutrophils Absolute Manual 3.31 K/mm3 (1.7-7.2); Neutrophils Percent Manual 61 % (46-73); Total Cells Counted 100
[2021-05-22 07:45] LABS: Anisocytosis 1+ (NORMAL); Hypochromasia 2+ (NORMAL); Ovalocytes 1+ (NORMAL); Platelet Estimate Decreased (Adequate); Poikilocytosis 1+ (NORMAL)
[2021-05-22] MEDS: amLODIPine BESYLATE 5 MG TABLET PO (08:02)
[2021-05-22] MEDS: ATORVASTATIN 40 MG TABLET 80 MG PO (08:02)
[2021-05-22] MEDS: ASPIRIN 325 MG TABLET PO (08:02)
[2021-05-22] MEDS: FERROUS SULFATE 324 MG TABLET PO (08:02)
[2021-05-22] MEDS: GABAPENTIN 300 MG CAPSULE PO ×3 (08:02→16:58)
[2021-05-22] MEDS: DULoxetine HCL 60 MG CAPSULE.DR PO (08:03)
[2021-05-22] MEDS: INSULIN GLARGINE (*BKC) 100 UNITS/ML 30 UNITS SUB-Q (08:42)
[2021-05-22] MEDS: INSULIN ASPART (*BKC) 100 UNITS/ML SUB-Q ×5 (08:43→17:54)
[2021-05-22 08:49] LABS: Glucose Point of Care 221 mg/dl (65-105)
--- NOTE | 2021-05-22 11:18 | PM.PNGS ---
Progress Note: A&P Assessment and Plan (1) Acute UTI: Code(s): N39.0 - Urinary tract infection, site not specified Status: Acute Assessment and Plan: Cultures growing E coli sensitivities pending. This was likely the source of her present illness. Urinary retention was noted and may be the precipitating cause. (2) Nausea vomiting and diarrhea: Code(s): R11.2 - Nausea with vomiting, unspecified; R19.7 - Diarrhea, unspecified Status: Acute Assessment and Plan: Abdominal pain better but no appetite yet. No further nausea and vomiting. Still has fecal containment device. Stool for C difficile was negative. May all be due to UTI. (3) Microcytic anemia: Code(s): D50.9 - Iron deficiency anemia, unspecified Status: Acute Assessment and Plan: Iron studies low and microcytic anemia. We will have GI see for this and cirrhosis with portal hypertension (4) Cirrhosis of liver: Qualifiers: Hepatic cirrhosis type: unspecified hepatic cirrhosis Ascites presence: without ascites Qualified Code(s): K74.60 - Unspecified cirrhosis of liver Code(s): K74.60 - Unspecified cirrhosis of liver Status: Chronic Assessment and Plan: Noted on CT scan. Etiology unclear. Consider image guided liver biopsy. GI to see. (5) Portal hypertension with esophageal varices: Code(s): K76.6 - Portal hypertension; I85.00 - Esophageal varices without bleeding Status: Chronic Assessment and Plan: As above. (6) Cholelithiasis: Qualifiers: Cholelithiasis location: gallbladder Cholecystitis presence: without cholecystitis Biliary obstruction: without biliary obstruction Qualified Code(s): K80.20 - Calculus of gallbladder without cholecystitis without obstruction Code(s): K80.20 - Calculus of gallbladder without cholecystitis without obstruction Status: Chronic Assessment and Plan: Tolerating oral intake with no right upper quadrant tenderness either yesterday or today. Doubt this is the cause of her present illness. Will follow peripherally. (7) Hemiparesis affecting right side as late effect of cerebrovascular accident: Code(s): I69.351 - Hemiplegia and hemiparesis following cerebral infarction affecting right dominant side Status: Chronic Subjective Subjective Date/Time Seen: 05/22/21 11:18 Patient reports: feels better, pain is less (Abdominal pain is gone), diarrhea and afebrile Interval history: Reports appetite is poor but abdominal pain has gone completely. Review of Systems Review of Systems: All systems reviewed & are unremarkable except as noted in HPI and below Constitutional: Constitutional: Reports as per HPI, Denies chills, Denies fever(s), Denies headache(s) and Reports poor appetite ENT: Denies headache(s) Cardiovascular: Cardiovascular: Denies chest pain and Denies dyspnea Respiratory: Respiratory: Denies cough and Denies dyspnea Gastrointestinal: Gastrointestinal: Reports as per HPI, Denies abdominal pain and Reports diarrhea Neurologic: Denies Abnormal speech present, Denies headache(s), Reports focal weakness and Reports weakness (Right hemiparesis) Psychiatric: Psychiatric: Reports change in appetite and Denies confusion Exam Const: General: cooperative, comfortable, no acute distress, alert and awake; No confusion Nutritional Appearance: overweight Orientation/consciousness: No confusion Limitations: No altered mental status GI: GI Palp: Yes Soft to palpation, Yes Tenderness to palpation present (GI), No Guarding due to palpation present (GI) and No Rebound tenderness present Auscultation: normal bowel sounds Extrem: General: no calf tenderness and no edema Objective Data Vital Signs Vital Signs: Vital Signs - 24 hr 05/21/21 17:50 05/21/21 22:00 05/22/21 06:00 Temperature 36.7 C 36.4 C 36.5 C Pulse Rate 108 H 102 H 107 H Respiratory Rate 20 16 16 Blood Pressure 136
[2021-05-22 13:08] LABS: Glucose Point of Care 273 mg/dl (65-105)
[2021-05-22 13:15] VITALS: BP 136/59; PULSE 98; RESP 20; TEMP 36.1; O2SAT 94
[2021-05-22 17:23] LABS: Glucose Point of Care 161 mg/dl (65-105)
[2021-05-22] MEDS: IRON SUCROSE COMPLEX 200 MG in SODIUM CHLORIDE 0.9% IV 50 ML 120 MG IVPB (17:54)
--- NOTE | 2021-05-22 18:15 | WPDGICN ---
Assessment and Plan Assessment and plan (1) Iron deficiency anemia: Code(s): D50.9 - Iron deficiency anemia, unspecified Status: Acute Assessment and Plan: no overt gib but will assess with egd and colonoscopy specially with history of new diagnosis of cirrhosis and previous history of ulcer, she is also over due to have colonoscopy (2) Cirrhosis of liver: Qualifiers: Hepatic cirrhosis type: unspecified hepatic cirrhosis Ascites presence: without ascites Qualified Code(s): K74.60 - Unspecified cirrhosis of liver Code(s): K74.60 - Unspecified cirrhosis of liver Status: Chronic Assessment and Plan: new diagnosis, she was told more than 20 years ago that had fatty liver and that is probably cause of liver cirrhosis but will check for other chronic liver conditions only social drinker (3) Nausea vomiting and diarrhea: Code(s): R11.2 - Nausea with vomiting, unspecified; R19.7 - Diarrhea, unspecified Status: Acute Assessment and Plan: probably related to uti, better scopes tomorrow (4) Acute UTI: Code(s): N39.0 - Urinary tract infection, site not specified Status: Acute Assessment and Plan: on abx (5) Cholelithiasis: Qualifiers: Cholelithiasis location: gallbladder Cholecystitis presence: without cholecystitis Biliary obstruction: without biliary obstruction Qualified Code(s): K80.20 - Calculus of gallbladder without cholecystitis without obstruction Code(s): K80.20 - Calculus of gallbladder without cholecystitis without obstruction Status: Chronic Assessment and Plan: probably is not the cause of symptom, surgery on board (6) Hemiparesis affecting left side as late effect of cerebrovascular accident (CVA): Onset Date: ~08/26/20 Code(s): I69.354 - Hemiplegia and hemiparesis following cerebral infarction affecting left non-dominant side Status: Acute GI Consult Note Consult date/time: 05/22/21 18:15 Reason for consult: nausea, cirrhosis, JULISSA HPI: Adore Segovia is a 76 year old female with history significant for diabetes mellitus, hypertension, chronic kidney disease, left hemispheric stroke leaving her with right hemiparesis. She resides in a senior living. She had some cough that started 2 days ago and then nausea, vomiting and diarrhea, feeling quite weak. She had a COVID rapid test and flu which were negative. ER evaluation revealed normal white count and normal liver function tests. Hemoglobin of 7.7 and also noted chronic thrombocytopenia in record. Urinalysis c/w with infection and started on antibiotics. CT scan reviewed, distended gallbladder with stones but no evidence of cholecystitis also evidence of advanced cirrhosis with nodular liver with esophageal varices and splenomegaly. She had colonoscopy but over 10 years ago and EGD but several years ago with ulcer , denies obvious gib. Now feeling better, also evaluated by surgery. Review of Systems Constitutional: Constitutional: Reports fatigue Eyes: Eyes: Denies blurry vision ENT: Reports Normal hearing present Cardiovascular: Cardiovascular: Denies chest pain Respiratory: Respiratory: Reports cough Gastrointestinal: Gastrointestinal: Reports abdominal pain, Reports diarrhea, Reports nausea and Reports vomiting Genitourinary: Genitourinary: Reports dysuria Musculoskeletal: Musculoskeletal: Denies neck pain Integumentary/Breasts: Skin/Breast: Denies dry skin Neurologic: Denies headache(s) Psychiatric: Psychiatric: Denies behavioral changes [facility] Past Medical History Medical History (Updated 05/22/21 @ 18:25 by Chilango Carbajal MD) MANOHAR (acute kidney injury) Anemia Depressive disorder H/O gastric ulcer 2012 Hemiparesis affecting right side as late effect of cerebrovascular accident History of hordeolum Hyperlipidemia Hypertension Hypothyroid Iron deficiency anemia Long-term insulin u
--- NOTE | 2021-05-22 18:32 | PM.IMPN ---
Progress Note: A&P Assessment and Plan (1) Acute UTI: Code(s): N39.0 - Urinary tract infection, site not specified Status: Acute Assessment and Plan: 3+ Leuk esterase on admission UA Urine culture pending may want to de-escelate abx from imipenem, as only prior urine microorganism was yeast (2) Acidosis, metabolic: Code(s): E87.2 - Acidosis Status: Acute Assessment and Plan: [place] acidosis Very likely related to patient's diarrhea monitor acidosis on am chemistry, but will most likely resolve when diarrhea fixed (3) Nausea vomiting and diarrhea: Code(s): R11.2 - Nausea with vomiting, unspecified; R19.7 - Diarrhea, unspecified Status: Acute Assessment and Plan: most likely related to UTI, and potentially infectious colitis evaluated by surgery and based on clinical picture and chronicity of cholelithiasis, they advised overwhelmingly unlikely pain is related to cholecystitis KUB without any acute findings stool path pcr pending (4) Microcytic anemia: Code(s): D50.9 - Iron deficiency anemia, unspecified Status: Acute Assessment and Plan: Hgb 9.8 late last year, down to 7.7 now no overt bleed, and denies melena hematochezia hemoptysis or hematemesis b12 folate and iron studies pending colonoscopy on board, appreciate additional recommendations, understand they are looking into potentially EGD and colonoscopy monitor am labs, transfuse as needed hold pharm dvt ppx, opt for scd instead will move forward with IV iron infusion, in addition to p.o. 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): Onset Date: ~08/26/20 Code(s): I69.354 - Hemiplegia and hemiparesis following cerebral infarction affecting left non-dominant side Status: Acute Assessment and Plan: Unchanged (8) Cirrhosis of liver: Qualifiers: Hepatic cirrhosis type: unspecified hepatic cirrhosis Ascites presence: without ascites Qualified Code(s): K74.60 - Unspecified cirrhosis of liver Code(s): K74.60 - Unspecified cirrhosis of liver Status: Chronic Assessment and Plan: GI on board, appreciate recommendations will consider propranolol, as permitted by heart rate Subjective Date/time seen: 05/22/21 18:32 no acute medical complaints Review of Systems Review of Systems: All systems reviewed & are unremarkable except as noted in HPI and below Exam Const: General: no acute distress Neck: Neck: no JVD Resp: Effort & Inspection: normal respiratory effort Auscultation: clear to auscultation bilaterally Cardio: Rate: regular rate Rhythm: regular rhythm GI: GI Palp: Yes Soft to palpation and No Tenderness to palpation present (GI) Objective Data Vital Signs Vital Signs: Vital Signs - 24 hr 05/21/21 22:00 05/22/21 06:00 05/22/21 13:15 Temperature 97.6 F 97.7 F 97.0 F L Pulse Rate 102 H 107 H 98 Respiratory Rate 16 16 20 Blood Pressure 149/85 H 140/62 136/59 L Pulse Oximetry 94 94 94 Intake/Output Intake/Output: Intake & Output 05/19/21 05/20/21 05/21/21 05/22/21 23:59 23:59 23:59 23:59 Intake Total 1250 1780 2090 Output Total 2099 1999 Balance 1250 -320 90 Meds/Results Medications: Active Medications Generic Name Dose Route Start La
[2021-05-22] MEDS: polyethylene glycoL 3350 238 GM BOTTLE PO (20:27)
[2021-05-22] MEDS: BISACODYL 5 MG TABLET EC 20 MG PO (20:27)
[2021-05-22 22:00] VITALS: BP 151/55; PULSE 95; RESP 16; TEMP 36.4; O2SAT 94
[2021-05-22 22:07] LABS: Glucose Point of Care 195 mg/dl (65-105)
[2021-05-23] VITALS (9 sets, daily range): BP systolic 90–141; BP diastolic 30–65; PULSE 80–92; RESP 16–20; TEMP 36.2–36.9; O2SAT 93–100
[2021-05-23] MEDS: MAGNESIUM CITRATE 300 ML BTL PO (04:02)
[2021-05-23 05:27] LABS: Basophils Percent Auto 0.4 % (0.2-1.2); Eosinophils Absolute Auto 0.2 K/mm3 (0-0.3); Eosinophils Percent Auto 2.8 % (0-4.4); Hematocrit 28.1 % (37.0-47.0); Hemoglobin 7.9 g/dL (12.0-15.0); Immature Granulocyte Absolute 0.04 K/mm3 (0.00-0.031); Immature Granulocyte Percent A 0.7 % (0-0.5); Lymphocytes Absolute Auto 1.03 K/mm3 (0.9-3.2); Lymphocytes Percent Auto 19.3 % (18.3-44.2); Mean Corpuscular HGB Conc 28.1 g/dl (32-36); Mean Corpuscular Hemoglobin 21.4 pg (26-34); Mean Corpuscular Volume 76.2 fl (80-100); Monocytes Absolute Auto 0.7 K/mm3 (0.1-0.6); Monocytes Percent Auto 13.3 % (2.6-8.5); Neutrophils Absolute Auto 3.4 K/mm3 (1.3-6.7); Neutrophils Percent Auto 63.5 % (45.5-73.1); Nucleated Red Blood Cells Perc 0.4 % (0.0-0.2); Platelet Count Result 101 k/mm3 (150-375); Red Blood Count 3.69 M/mm3 (4.2-5.4); Red Cell Distribution Width 17.3 % (11.5-14.5); White Blood Count 5.4 K/mm3 (4.5-10.0)
[2021-05-23 05:46] LABS: Alanine Aminotransferase 17 U/L (4-35); Albumin Level 3.2 g/dL (3.5-5.1); Alkaline Phosphatase 69 U/L (38-126); Anion Gap 5 mmol/L (8-16); Aspartate Amino Transferase 25 U/L (14-36); Bilirubin,Total 0.4 mg/dL (0.2-1.3); Blood Urea Nitrogen 14 mg/dL (7-17); Calcium 9.3 mg/dL (8.4-10.2); Carbon Dioxide 24 mmol/L (22-30); Chloride 107 mmol/L (98-107); Estimated CRCL calculation 60 ml/min; Estimated Glomerular Filt Rate > 60; Glucose 275 mg/dL (65-110); Magnesium 1.4 mg/dL (1.6-2.3); Phosphorus 2.4 mg/dL (2.5-4.5); Potassium 3.6 mmol/L (3.4-5.0); Sodium 136 mmol/L (137-145)
[2021-05-23 06:56] LABS: Hepatitis B Surface Antigen Negative (Negative)
[2021-05-23 07:01] LABS: HAV RESULT Negative (Negative); Hepatitis B Core IgM Result Negative (Negative)
[2021-05-23 07:13] LABS: Hepatitis C Virus Antibody Negative (Negative)
[2021-05-23 08:09] LABS: Glucose Point of Care 247 mg/dl (65-105)
[2021-05-23] MEDS: MAGNESIUM SULF 2 GM/WATER 50ML 2 GM/50 ML BAG IVPB (08:53)
[2021-05-23] MEDS: fentaNYL CITRATE INJ (*CRX) 100 MCG/2 ML VIAL 50 MCG IV PUSH (08:55)
--- NOTE | 2021-05-23 10:36 | PM.IMPN ---
Progress Note: A&P Assessment and Plan (1) Acute UTI: Code(s): N39.0 - Urinary tract infection, site not specified Status: Acute Assessment and Plan: 3+ Leuk esterase on admission UA Urine culture pending E coli growing in urine, susceptible to Augmentin will change ceftriaxone to Augmentin (2) Acidosis, metabolic: Code(s): E87.2 - Acidosis Status: Acute Assessment and Plan: [place] acidosis, resolved Very likely related to patient's diarrhea monitor acidosis on am chemistry, but will most likely resolve when diarrhea fixed (3) Nausea vomiting and diarrhea: Code(s): R11.2 - Nausea with vomiting, unspecified; R19.7 - Diarrhea, unspecified Status: Acute Assessment and Plan: most likely related to UTI, and potentially infectious colitis evaluated by surgery and based on clinical picture and chronicity of cholelithiasis, they advised overwhelmingly unlikely pain is related to cholecystitis KUB without any acute findings stool path pcr pending (4) Microcytic anemia: Code(s): D50.9 - Iron deficiency anemia, unspecified Status: Acute Assessment and Plan: Hgb 9.8 late last year, down to 7.7 now no overt bleed, and denies melena hematochezia hemoptysis or hematemesis b12 folate and iron studies pending GI on board, proceeding with EGD and colonoscopy today monitor am labs, transfuse as needed hold pharm dvt ppx, opt for scd instead will move forward with IV iron infusion, in addition to p.o. supplementation, as ferritin is low (5) Type 2 diabetes mellitus with hyperglycemia, with long-term current use of insulin: Code(s): E11.65 - Type 2 diabetes mellitus with hyperglycemia; Z79.4 - MCFP (current) use of insulin Status: Chronic Assessment and Plan: Patient is NPO Accu-Cheks every 6 hours Insulin sliding scale as needed (6) Hypertension: Qualifiers: Hypertension type: essential hypertension Qualified Code(s): I10 - Essential (primary) hypertension Code(s): I10 - Essential (primary) hypertension Status: Chronic Assessment and Plan: continue amlodipine (7) Hemiparesis affecting left side as late effect of cerebrovascular accident (CVA): Onset Date: ~08/26/20 Code(s): I69.354 - Hemiplegia and hemiparesis following cerebral infarction affecting left non-dominant side Status: Acute Assessment and Plan: Unchanged (8) Cirrhosis of liver: Qualifiers: Hepatic cirrhosis type: unspecified hepatic cirrhosis Ascites presence: without ascites Qualified Code(s): K74.60 - Unspecified cirrhosis of liver Code(s): K74.60 - Unspecified cirrhosis of liver Status: Chronic Assessment and Plan: GI on board, appreciate recommendations will consider propranolol, as permitted by heart rate Additional Plan acute on chronic was Subjective Date/time seen: 05/23/21 10:36 no acute complaints, lower abdominal pain is improving Review of Systems Review of Systems: All systems reviewed & are unremarkable except as noted in HPI and below Exam Const: General: no acute distress; No in distress Neck: Neck: no JVD Resp: Effort & Inspection: normal respiratory effort Auscultation: clear to auscultation bilaterally Cardio: Rate: regular rate Rhythm: regular rhythm GI: GI Palp: Yes Soft to palpation and No Tenderness to palpation present (GI) Objective Data Vital Signs Vital Signs: Vital Signs - 24 hr 05/22/21 13:15 05/22/21 22:00 05/23/21 06:00 Temperature 97.0 F L 97.6 F 98.4 F Pulse Rate 98 95 90 Respiratory Rate 20 16 16 Blood Pressure 136/59 L 151/55 H 132/58 L Pulse Oximetry 94 94 94 05/23/21 09:03 Temperature Pulse Rate Respiratory Rate 16 Blood Pressure Pulse Oximetry 94 Intake/Output Intake/Output: Intake & Output 05/20/21 05/21/21 05/22/21 05/23/21 23:59 23:59 23:59 23:59 Intake Total 1250 1780 3090 50 Output T
--- NOTE | 2021-05-23 10:57 | PC.NURSE ---
Report called to [facility].
--- NOTE | 2021-05-23 11:48 | PC.NURSE ---
To GI Lab via [facility].
[2021-05-23] MEDS: LACTATED RINGERS 1,000 ML 150 ML IV CONT (12:09)
--- NOTE | 2021-05-23 12:11 | WPDANESEPPF ---
Anes - Initial Pre Proc Eval Procedure: Operation Date: 05/23/21 13:15 Proposed Procedures p Esophagogastroduodenoscopy & Colonoscopy - Chilango Carbajal MD Date/Time: 05/23/21 12:11 Surgeon: Nohelia Katz MD Pre Op Diagnosis: UTI, Cholecystitis, Anemia Patient Data Age: 76 Gender: F Height: 1.65 m Weight: 78 kg Last Vital Signs Temp 36.6 C 05/23/21 12:00 Pulse 90 05/23/21 12:00 Resp 20 05/23/21 12:00 BP 131/46 L 05/23/21 12:00 Pulse Ox 96 05/23/21 12:00 Allergies Allergy/AdvReac Type Severity Reaction Status Date / Time diclofenac Allergy Mild Unknown Verified 05/20/21 23:50 morphine Allergy Mild REDDNESS/IT Verified 05/20/21 23:50 DEUCE prednisone Allergy Mild hands Verified 05/20/21 23:50 didn't work Sulfa (Sulfonamide Allergy Mild 01/15/07 Verified 05/20/21 23:50 Antibiotics) ALLERGY CONFIMED ON ADMISSION TO PREOP sulfanilamide Allergy Mild lips Verified 05/20/21 23:50 swelling tetracycline Allergy Mild 01/15/07 Verified 05/20/21 23:50 ALLERGRY CONFIRMED ON ADMISSION TO PREOP tramadol Allergy Mild ITCHING Verified 05/20/21 23:50 Home Medications Medication Instructions Recorded Confirmed Type latanoprost 1 drp OPHTHALMIC (EYE) HS 10/22/19 05/20/21 History levothyroxine 50 mcg tablet See Rx Instructions .ROUTE 09/07/20 05/20/21 Rx .COMPLEX #90 tablet pantoprazole 40 mg tablet,delayed See Rx Instructions .ROUTE 09/07/20 05/20/21 Rx release .COMPLEX #90 tablet alprazolam 0.5 mg tablet 0.25 mg PO TID PRN 03/14/21 05/20/21 History amlodipine 5 mg tablet 5 mg PO DAILY 03/14/21 05/20/21 History aspirin 325 mg tablet 325 mg PO DAILY 03/14/21 05/20/21 History atorvastatin 80 mg tablet 80 mg PO DAILY 03/14/21 05/20/21 History clopidogrel 75 mg tablet 75 mg PO DAILY 03/14/21 05/20/21 History duloxetine 60 mg capsule,delayed 60 mg PO DAILY 03/14/21 05/20/21 History release gabapentin 300 mg capsule 300 mg PO TID 03/14/21 05/20/21 History guaifenesin 600 mg tablet, 600 mg PO BID 03/14/21 05/20/21 History extended release 12 hr hydroxyzine HCl 10 mg tablet 10 mg PO QHS tablet 03/14/21 05/20/21 History loperamide 2 mg capsule 2 mg PO Q6H PRN 03/14/21 05/20/21 History loratadine 10 mg capsule 10 mg PO DAILY PRN 03/14/21 05/20/21 History multivitamin 1 tablet PO DAILY 03/14/21 05/20/21 History acetaminophen 650 mg PO Q4-6H PRN 05/20/21 05/20/21 History cyclosporine [Restasis] 2 drp OPHTHALMIC (EYE) BID PRN 05/20/21 05/20/21 History empagliflozin [Jardiance] 25 mg PO DAILY 05/20/21 05/20/21 History ferrous sulfate 325 mg PO DAILY 05/20/21 05/20/21 History hydrocortisone 1 applic TOPICAL BID PRN 05/20/21 05/20/21 History insulin glargine [Lantus Solostar 42 unit SUBCUT QAM 05/20/21 05/20/21 History U-100 Insulin] insulin lispro [Humalog KwikPen 12 unit SUB-Q TIDWMEAL 05/20/21 05/20/21 History Insulin] insulin lispro [Humalog Pen] 10 unit SUBCUT TIDWM PRN 05/20/21 05/20/21 History levocetirizine [Xyzal] 5 mg PO DAILY 05/20/21 05/20/21 History lisinopril 40 mg PO DAILY 05/20/21 05/20/21 History metformin 1,000 mg PO BID 05/20/21 05/20/21 History Laboratory Tests 05/22/21 05/22/21 05/22/21 12:56 17:06 20:52 WBC RBC Hgb Hct MCV MCH MCHC RDW Plt Count MPV Immature Gran % (Auto) Neut % (Auto) Lymph % (Auto) [place] % (Auto) Eos % (Auto) Baso % (Auto) Lymph # (Auto) [place] # (Auto) Eos # (Auto) Baso # (Auto) Abs Immat Gran (auto) Absolute Neuts (auto) Absolute Nucleated RBC Nucleated RBC % Sodium Potassium Chloride Carbon Dioxide Anion Gap BUN
[2021-05-23 12:12] LABS: Glucose Point of Care 227 mg/dl (65-105)
--- NOTE | 2021-05-23 12:41 | SUR.OPER ---
EGD ENDED AT 1236. COLONOSCOPY STARTED AT 1241
--- NOTE | 2021-05-23 13:25 | SUR.OPER ---
Rectal tube balloon deflated and removed for colonoscopy at 12:38
[2021-05-23 13:34] LABS: Glucose Point of Care 210 mg/dl (65-105)
[2021-05-23] MEDS: LACTATED RINGERS 1,000 ML 65 ML IV CONT (14:12)
[2021-05-23] MEDS: POTASSIUM PHOS/SODIUM PHOS 250 MG TABLET PO (14:20)
[2021-05-23] MEDS: DULoxetine HCL 60 MG CAPSULE.DR PO (14:21)
[2021-05-23] MEDS: GABAPENTIN 300 MG CAPSULE PO ×2 (14:21→16:53)
[2021-05-23] MEDS: ATORVASTATIN 40 MG TABLET 80 MG PO (14:21)
[2021-05-23] MEDS: amLODIPine BESYLATE 5 MG TABLET PO (14:21)
[2021-05-23] MEDS: INSULIN GLARGINE (*BKC) 100 UNITS/ML 30 UNITS SUB-Q (14:30)
[2021-05-23 17:13] LABS: Glucose Point of Care 186 mg/dl (65-105)
[2021-05-23] MEDS: IRON SUCROSE COMPLEX 200 MG in SODIUM CHLORIDE 0.9% IV 50 ML 120 MG IVPB (17:20)
[2021-05-23] MEDS: INSULIN ASPART (*BKC) 100 UNITS/ML SUB-Q (17:39)
[2021-05-23] MEDS: AMOXICILLIN/CLAVULANATE K 875-125 MG TAB 1 TABLET PO (20:22)
[2021-05-23] MEDS: PANTOPRAZOLE 40 MG TABLET PO (20:22)
[2021-05-23] MEDS: ACETAMINOPHEN 325 MG TABLET 650 MG PO (21:45)
[2021-05-23 22:11] LABS: Glucose Point of Care 247 mg/dl (65-105)
[2021-05-24] VITALS: BP 127/48; PULSE 86; RESP 18; TEMP 36.3; O2SAT 94
--- NOTE | 2021-05-24 00:34 | PM.DS ---
DS: Admitting Diagnosis Admitting Diagnosis abdominal pain DS: Discharge Diagnosis Discharge Diagnosis (1) Erosive gastritis: Code(s): K29.60 - Other gastritis without bleeding Status: Acute (2) Iron deficiency anemia: Code(s): D50.9 - Iron deficiency anemia, unspecified Status: Acute (3) Portal hypertension with esophageal varices: Code(s): K76.6 - Portal hypertension; I85.00 - Esophageal varices without bleeding Status: Chronic (4) Acute UTI: Code(s): N39.0 - Urinary tract infection, site not specified Status: Acute DS: Summary Hospital Course Hospital Course: 76yo lady with history of hepatic cirrhosis presenting with abdominal pain. Most likely attributed to UTI and gastritis. Symptoms improved somewhat with antibiotics. She was noted to be anemic which is likely chronic and related to liver cirrhosis. However there was an acute drop, which was worked up thoroughly including iron studies, colonoscopy and EGD. Iron studies showed ferritin on the lower side, and so we started her on IV iron in addition to PO iron. Colonoscopy showed no active bleed, and EGD showed widespread gastritis, with biopsies taken. Patient was started on acid suppression, and will follow up with PCP and GI pending results of biopsies to see if she needs antibiotics. Some concern for hepatobiliary pain given cholelithiasis on imaging, but as noted by surgery service, the stones have been there for years not causing pain, and pain history and abdominal exam in addition to imaging do not support any acute process warranting surgical intervention. Also seen by GI and will follow outpatient with them and PCP for management of liver disease. Will send to SNF on protonix and completing uti antibiotic regimen. Continue iron supplementation and routine blood checks. As discussed with patient, given nature of underlying liver disease and gastritis, she is at high risk of recurrent anemia related to future GI bleeds. Will need close monitoring even at SNF. Status at Discharge Functional status at discharge: wheelchair bound Overall status at discharge: patient is progressing back to baseline Time Spent with Patient Time attestation: Total time spent providing and/or coordinating discharge services: Time spent: Less than 30 minutes Exam Const: General: no acute distress Neck: Neck: no JVD Resp: Effort & Inspection: normal respiratory effort Auscultation: clear to auscultation bilaterally Cardio: Rate: regular rate, not bradycardic and not tachycardic Rhythm: regular rhythm Heart sounds: no murmurs GI: GI Palp: Yes Soft to palpation and Yes Firmness to palpation present (GI) DS: Data Data Completed and Pending Completed studies during hospitalization: Pending at discharge 05/23/21 12:56 Surgical [PTH] Routine Discharge Plan Discharge Attending physician on discharge: Mima Cano Consulting providers: ; Chilango Carbajal ; Rahul Chery ; Tj Mckay ; Jevon Sims V. Discharging Clinician: Mima Cano Patient Disposition: SNF Activity: no shower, no straining and no driving Diet: heart healthy and diabetic Patient Instructions: Iron Supplements (By mouth), Clopidogrel (By mouth), Iron Sucrose (By injection), Safe Use of Anticoagulants (GEN) Stand Alone Forms: General Discharge Information Follow-up/Referrals: Litzy Briscoe [Other] Chilango Carbajal MD [Physician] - Call for Appointment Discharge Medications: New aspirin 81 mg tablet,delayed release (DR/EC) 81 mg PO DAILY Qty: 30 RF: 0 amoxicillin-pot clavulanate [Augmentin] 875-125 mg Tablet 1 tablet PO Q12HR 5 Days Qty: 10 RF: 0 Continued alprazolam 0.5 mg tablet 0.25 mg PO TID PRN (Reason: Anxiety) RF: 0 amlodipine 5 mg tablet 5 mg PO DAILY RF: 0 atorvastatin 80 mg tablet 80 mg PO DAILY RF: 0 loratadine [Claritin Liqui-Gel] 10 mg capsule 10 mg PO RAQUEL
[2021-05-24 04:36] VITALS: BP 154/68; PULSE 85; RESP 18; TEMP 36.1; O2SAT 97
[2021-05-24 05:41] LABS: Basophils Percent Auto 0.4 % (0.2-1.2); Eosinophils Absolute Auto 0.2 K/mm3 (0-0.3); Eosinophils Percent Auto 3.5 % (0-4.4); Hemoglobin 7.6 g/dL (12.0-15.0); Immature Granulocyte Absolute 0.13 K/mm3 (0.00-0.031); Immature Granulocyte Percent A 2.7 % (0-0.5); Immature Platelet Fraction Pct 2.5 % (0.9-11.2); Lymphocytes Absolute Auto 1.04 K/mm3 (0.9-3.2); Lymphocytes Percent Auto 21.6 % (18.3-44.2); Mean Corpuscular HGB Conc 28.1 g/dl (32-36); Mean Corpuscular Hemoglobin 21.4 pg (26-34); Mean Corpuscular Volume 76.1 fl (80-100); Mean Platelet Volume 9.3 fl (7.4-10.4); Monocytes Absolute Auto 0.7 K/mm3 (0.1-0.6); Monocytes Percent Auto 13.7 % (2.6-8.5); Neutrophils Absolute Auto 2.8 K/mm3 (1.3-6.7); Neutrophils Percent Auto 58.1 % (45.5-73.1); Nucleated Red Blood Cells Absolute Auto 0.1 K/mm3 (0.0-0.012); Nucleated Red Blood Cells Perc 1.2 % (0.0-0.2); Platelet Count Result 107 k/mm3 (150-375); Red Blood Count 3.55 M/mm3 (4.2-5.4); Red Cell Distribution Width 17.3 % (11.5-14.5); White Blood Count 4.8 K/mm3 (4.5-10.0)
[2021-05-24] MEDS: LACTATED RINGERS 1,000 ML 65 ML IV CONT (05:52)
[2021-05-24 05:55] LABS: Alanine Aminotransferase 16 U/L (4-35); Alkaline Phosphatase 71 U/L (38-126); Anion Gap 6 mmol/L (8-16); Aspartate Amino Transferase 22 U/L (14-36); Bilirubin,Total 0.2 mg/dL (0.2-1.3); Blood Urea Nitrogen 9 mg/dL (7-17); Carbon Dioxide 27 mmol/L (22-30); Chloride 101 mmol/L (98-107); Estimated CRCL calculation 60 ml/min; Estimated Glomerular Filt Rate > 60; Glucose 236 mg/dL (65-110); Magnesium 1.8 mg/dL (1.6-2.3); Phosphorus 2.6 mg/dL (2.5-4.5); Potassium 3.4 mmol/L (3.4-5.0); Sodium 134 mmol/L (137-145)
--- NOTE | 2021-05-24 06:58 | WPDANESPN ---
Anes - Prog Note Post-Op Date/Time: 05/24/21 06:58 Cardiovascular status: normal Respiratory status: normal Airway patency: baseline Mental status: baseline Post-Op hydration status: normal Vital Signs: Last Vital Signs Temp 96.9 F L 05/24/21 04:36 Pulse 85 05/24/21 04:36 Resp 18 05/24/21 04:36 BP 154/68 H 05/24/21 04:36 Pulse Ox 97 05/24/21 04:36 Pain Score (VAS): 1 I/O: Intake & Output 05/23/21 05/23/21 05/24/21 15:59 23:59 07:59 Intake Total 9207 587 1224 Output Total 1000 200 400 Balance 400 -90 790 Laboratory Tests 05/24/21 05:21 05/24/21 05:21 05/23/21 05/23/21 05/23/21 05:17 05:17 08:06 WBC 5.4 RBC 3.69 L Hgb 7.9 L Hct 28.1 L MCV 76.2 L MCH 21.4 L MCHC 28.1 L RDW 17.3 H Plt Count 101 L MPV 10.0 Immature Gran % (Auto) 0.7 H Neut % (Auto) 63.5 Lymph % (Auto) 19.3 [place] % (Auto) 13.3 H Eos % (Auto) 2.8 Baso % (Auto) 0.4 Lymph # (Auto) 1.03 [place] # (Auto) 0.7 H Eos # (Auto) 0.2 Baso # (Auto) 0.0 Abs Immat Gran (auto) 0.04 H Absolute Neuts (auto) 3.4 Absolute Nucleated RBC 0.0 Nucleated RBC % 0.4 H % Immature Plt Fraction Sodium Potassium Chloride Carbon Dioxide Anion Gap BUN Creatinine Estim Creat Clear Calc Estimated GFR Glucose POC Capillary Glucose 247 H Calcium Phosphorus Magnesium Total Bilirubin AST ALT Alkaline Phosphatase Total Protein Albumin Hepatitis A IgM Ab Negative Hep B Core IgM Ab Negative Hepatitis C Ab Screen Negative 05/23/21 05/23/21 05/23/21 12:08 13:32 17:08 WBC RBC Hgb Hct MCV MCH MCHC RDW Plt Count MPV Immature Gran % (Auto) Neut % (Auto) Lymph % (Auto) [place] % (Auto) Eos % (Auto) Baso % (Auto) Lymph # (Auto) [place] # (Auto) Eos # (Auto) Baso # (Auto) Abs Immat Gran (auto) Absolute Neuts (auto) Absolute Nucleated RBC Nucleated RBC % % Immature Plt Fraction Sodium Potassium Chloride Carbon Dioxide Anion Gap BUN Creatinine Estim Creat Clear Calc Estimated GFR Glucose POC Capillary Glucose 227 H 210 H 186 H Calcium Phosphorus Magnesium Total Bilirubin AST ALT Alkaline Phosphatase Total Protein Albumin Hepatitis A IgM Ab Hep B Core IgM Ab Hepatitis C Ab Screen 05/23/21 05/24/21 05/24/21 20:21 05:21 05:21 WBC 4.8 RBC 3.55 L Hgb 7.6 L Hct 27.0 L MCV 76.1 L MCH 21.4 L MCHC 28.1 L RDW 17.3 H Plt Count 107 L MPV 9.3 Immature Gran % (Auto) 2.7 H Neut % (Auto) 58.1 Lymph % (Auto) 21.6 [place] % (Auto) 13.7 H Eos % (Auto) 3.5 Baso % (Auto) 0.4 Lymph # (Auto) 1.04 [place] # (Auto) 0.7 H Eos # (Auto) 0.2 Baso # (Auto) 0.0 Abs Immat Gran (auto) 0.13 H Absolute Neuts (auto) 2.8 Absolute Nucleated RBC 0.1 H Nucleated RBC % 1.2 H % Immature Plt Fraction 2.5 Sodium 134 L Potassium 3.4 Chloride 101 Carbon Dioxide 27 Anion Gap 6 L BUN 9 D Creatinine 0.70 Estim Creat Clear Calc 60 Estimated GFR > 60 Glucose 236 H POC Capillary Glucose 247 H Calcium 9.0 Phosphorus 2.6 Magnesium 1.8 Total Bilirubin 0.2 AST 22 ALT 16 Alkaline Phosphatase 71 Total Protein 6.0 L Albumin 3.0 L Hepatitis A IgM Ab Hep B Core IgM Ab Hepatitis C Ab Screen Post-procedural complaints: none Patient Feedback: Patient satisfied with anesthetic care.
[2021-05-24 08:12] LABS: Glucose Point of Care 190 mg/dl (65-105)
[2021-05-24] MEDS: ONDANSETRON INJ 4 MG/2 ML VIAL IV PUSH (08:12)
[2021-05-24] MEDS: GABAPENTIN 300 MG CAPSULE PO ×3 (08:12→16:29)
[2021-05-24] MEDS: ATORVASTATIN 40 MG TABLET 80 MG PO (08:12)
[2021-05-24] MEDS: FERROUS SULFATE 324 MG TABLET PO (08:14)
[2021-05-24] MEDS: AMOXICILLIN/CLAVULANATE K 875-125 MG TAB 1 TABLET PO (08:14)
[2021-05-24] MEDS: PANTOPRAZOLE 40 MG TABLET PO (08:14)
[2021-05-24] MEDS: amLODIPine BESYLATE 5 MG TABLET PO (08:14)
[2021-05-24] MEDS: DULoxetine HCL 60 MG CAPSULE.DR PO (08:14)
[2021-05-24] MEDS: INSULIN ASPART (*BKC) 100 UNITS/ML SUB-Q ×5 (08:15→16:30)
[2021-05-24] MEDS: INSULIN GLARGINE (*BKC) 100 UNITS/ML 30 UNITS SUB-Q (08:15)
[2021-05-24] MEDS: ACETAMINOPHEN 325 MG TABLET 650 MG PO (08:25)
[2021-05-24 12:06] VITALS: BP 136/68; PULSE 81; RESP 18; TEMP 36.3; O2SAT 95
[2021-05-24 13:06] LABS: Glucose Point of Care 205 mg/dl (65-105)
[2021-05-24 14:23] VITALS: O2SAT 92
[2021-05-24 16:20] LABS: Glucose Point of Care 307 mg/dl (65-105)
--- NOTE | 2021-05-24 16:28 | WPDGIPROGNO ---
Progress Note: A&P Assessment and Plan (1) Erosive gastritis: Code(s): K29.60 - Other gastritis without bleeding Status: Acute Assessment and Plan: probably can explain anemia and some of symptoms continue with protonix daily she can follow-up office in 3-4 weeks (2) Nausea vomiting and diarrhea: Code(s): R11.2 - Nausea with vomiting, unspecified; R19.7 - Diarrhea, unspecified Status: Acute Assessment and Plan: improved (3) Cirrhosis of liver: Qualifiers: Hepatic cirrhosis type: unspecified hepatic cirrhosis Ascites presence: without ascites Qualified Code(s): K74.60 - Unspecified cirrhosis of liver Code(s): K74.60 - Unspecified cirrhosis of liver Status: Chronic Assessment and Plan: probably FARRELL related (she has risk factors) hepatitis panel negative will need liver imaging every 6 months for hcc surveillance (4) Iron deficiency anemia: Code(s): D50.9 - Iron deficiency anemia, unspecified Status: Acute (5) Acute urinary retention: Code(s): R33.8 - Other retention of urine Status: Acute Assessment and Plan: on abx (6) Hemiparesis affecting right side as late effect of cerebrovascular accident: Code(s): I69.351 - Hemiplegia and hemiparesis following cerebral infarction affecting right dominant side Status: Chronic Subjective Date/time seen: 05/24/21 16:28 Interval history: egd with mod-severe gastritis, colonoscopy unremarkable. Overall better but she can not urinate, waiting to use restroom Review of Systems Review of Systems: All systems reviewed & are unremarkable except as noted in HPI and below Exam Const: General: comfortable and no acute distress HENMT: General nose exam: Normal nares present Eyes: Sclera: sclerae normal Neck: Neck: supple Resp: Auscultation: clear to auscultation bilaterally Cardio: Rate: regular rate GI: GI Palp: Yes Soft to palpation, No Tenderness to palpation present (GI) and No Guarding due to palpation present (GI) Auscultation: normal bowel sounds Skin: General skin exam: normal color Neuro: Speech: normal speech Other: right hemiparesis Extrem: General: no edema Psych: Mental Status: mental status grossly normal Objective Data Vital Signs Vital Signs: Vital Signs - 24 hr 05/23/21 20:30 05/24/21 00:00 05/24/21 04:36 Temperature 97.8 F 97.3 F L 96.9 F L Pulse Rate 92 86 85 Respiratory Rate 18 18 18 Blood Pressure 141/61 H 127/48 L 154/68 H Pulse Oximetry 93 94 97 05/24/21 12:06 05/24/21 14:23 Temperature 97.3 F L Pulse Rate 81 Respiratory Rate 18 Blood Pressure 136/68 Pulse Oximetry 95 92 Intake/Output Intake/Output: Intake & Output 05/21/21 05/22/21 05/23/21 05/24/21 23:59 23:59 23:59 23:59 Intake Total 1780 3150 1510 1510 Output Total 2100 1999 2700 700 Balance -320 1150 -1190 810 Meds/Results Medications: Active Medications Generic Name Dose Route Start Last Admin Trade Name Freq PRN Reason Stop Dose Admin Acetaminophen 650 mg 05/21/21 01:57 05/24/21 08:25 Acetaminophen 325 Mg Tablet PO 650 mg Q4-6H PRN Administration Pain (Scale Score 1-3) Alprazolam 0.25 mg 05/21/21 09:37 Alprazolam (*Crx) 0.25 Mg Tablet PO TID PRN Anxiety Amlodipine Besylate 5 mg 05/21/21 09:00 05/24/21 08:14 Amlodipine Besylate 5 Mg Tablet PO 5 mg DAILY ASTRID Administration Amoxicillin/Clavulanate Potassium 1 tablet 05/23/21 21:00 05/24/21 08:14 Amoxicillin/Clavulanate K 875-125 Mg Tab PO 1 tablet Q12HR ASTRID Administration Atorvastatin Calcium 80 mg 05/21/21 09:00 05/24/21 08:12 Atorvastatin 40 Mg Tablet PO 80 mg DAILY ASTRID Administration Clopidogrel Bisulfate 75 mg 05/21/21 09:00 05/21/21 08:29 Clopidogrel Bisulfate 75 Mg Tablet PO 75 mg DAILY ASTRID Administration Cyclosporine 2 drop 05/21/21 01:57 Cyclosporine 0.4 Ml Ophth Solution EACH EYE B
[2021-05-26 10:59] LABS: Ceruloplasmin 36 mg/dL (18-53)
[2021-05-29 22:45] LABS: Mitochondrial (M2) Ab (IgG) <=20.0 U (<=20.0)
== END 2021-05-24 18:35 ==
LOC: ANHED 19:53 → ANH2MED 22:44
PROVIDERS: Internal Medicine Gastroenterology; Admitting Provider Internal Medicine; Emergency Provider General Practice; Visit Provider Internal Medicine
PROC: 0DJ08ZZ Inspection of Upper Intestinal Tract, Via Natural or Artificial Opening Endoscopic (ICD-10-PCS; CPT 43235; principal; 2021-05-23 13:15)
DX: K29.60 Other gastritis without bleeding (principal); D50.9 Iron deficiency anemia, unspecified; K76.6 Portal hypertension; I85.00 Esophageal varices without bleeding; N39.0 Urinary tract infection, site not specified; I69.351 Hemiplegia and hemiparesis following cerebral infarction affecting right dominant side; E03.9 Hypothyroidism, unspecified; E87.2 Acidosis; E11.42 Type 2 diabetes mellitus with diabetic polyneuropathy; I10 Essential (primary) hypertension; E11.65 Type 2 diabetes mellitus with hyperglycemia; R33.8 Other retention of urine; K80.20 Calculus of gallbladder without cholecystitis without obstruction; K74.60 Unspecified cirrhosis of liver; K57.30 Diverticulosis of large intestine without perforation or abscess without bleeding; K64.8 Other hemorrhoids; Z79.4 Long term (current) use of insulin
CPT/HCPCS: 43239; 45378; 36415; 51701; 71045; 74018; 74177; 80053; 80074; 81001; 82104; 82390; 82607; 82728; 82746; 82948; 83520; 83540; 83550; 83690; 83735; 84100; 84443; 85025; 85055; 86038; 87077; 87086; 87186; 87324; 88305; 88342; 93005; 96361; 96365; 96367; 96375; 96376; 99285; A9270; G0378; J0131; J0696; J0743; J1756; J1815; J2001; J2370; J2405; J2704; J3010; J3475; J7030; J7120; Q9967